=== PATIENT | female | born 1965 | race Caucasian/White ===

== ENCOUNTER → 2023-04-23 | Outpatient (CLI) | payer OTHER ==
--- NOTE | 2023-04-23 14:46 | USB ---
Reason for Exam: Follow-up at short interval from prior study. Risk Values: Emilie 5 year model risk: 0.9%. NCI Lifetime model risk: 5.1%. Technique: Method: Targeted. Findings: The medial section of the breast of the left breast, the axilla of the left breast and the retroareolar of the left breast were scanned. Targeted ultrasound left breast subareolar and periareolar region as well as the 10 and 11:00 position. There is no persisting abnormality in the subareolar region as questioned on outside ultrasounds. Microclip relating to patient's stereotactic biopsy is identified at the 11:00 position. No abnormality at the 10:00 position, possibly disrupted at the time of patient's stereotactic biopsy. No persisting lesion is seen. No other solid or cystic lesion or axillary lymphadenopathy. Overall Assessment: Known biopsy proven malignancy, BI-RAD 6 Management: Surgical Consultation of the left breast. Continue with the planned surgical and oncologic management of the patient's biopsy proven left breast DCIS. Results were given to the patient verbally at the time of exam. Electronically signed and approved by: Aidan Velarde M.D. Radiologist
== END | disposition home or self-care (01) ==
LOC: RADUSWWP 13:24
PROVIDERS: ATTEND Surgery
DX: C50.912 Malignant neoplasm of unspecified site of left female breast (principal)

== ENCOUNTER → 2023-04-23 | Outpatient (CLI) | payer OTHER ==
[2023-04-23 12:41] VITALS: BP 114/76; PULSE 73; RESP 17; TEMP 98.7
--- NOTE | 2023-04-23 13:02 | P.GSHP ---
History of Present Illness H&P Date: 04/23/23 Chief Complaint: DCIS left breast Dulce is a 58 year old female seen in consultation for Dr. 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 She had a bilateral mammogram on 03-15-23 which led to a diagnostic left breast ultrasound and mammogram on 03-25-23. She was noted to have microcalcifications of concern in the UOQ and ster biopsy was recommnded, and additionally she had : onultrasound: 1. oval mass subaerolar area left breast biopsy considered 2. oval mass 10:00 biopsy considered The ultrasound was repeated on 04-06-23 and felt to be probably benign. The above was reviewed with Dr. Friend and he recommended again repeating the ult rasound of the subaerolar and 10:00 regions of the breast. A stero biopsy was done of the calcifications on 04-05-23 which showed DCIS. The area spans 5 by 2 cm. The findings were on a routine screening mammogram. She was not complaining of any new lumps masses or nodules of concern in either breast. She is not complaining of any nipple discharge or skin changes. She had not had any recent trauma or infection in the breast. She has not had any surgery on her breast. Her last mammogram prior to htis was 2016. Caffeine: 3 cups/day nicotine: none BCP: used for about 3 years in remote past chocolate: occasional Family History: mother: pancreatic cancer maternal aunt: breast cancer maternal uncle: lung cancer smoker 3 paternal uncles: cnacer ? type Hormonal History: menarche: 12 , breast fed: no, age at first : 22 menopause: hysterectomy in 2000; one ovary left; done for fibroids Surgical History: hysterectomy/ one ovary removed back surgery laminectomy/discectomy/DJD tonsil Medical History: back pain PTSD OCD panic attacks Hypochondriac Social History: nicotine: none alcohol: none drugs: none - Constitutional Constitutional: Denies chills, Denies fever - EENT Eyes: denies blurred vision, denies pain Ears: deny: decreased hearing, tinnitus Ears, nose, mouth and throat: Denies headache, Denies sore throat - Breasts Breasts: bilateral: as per HPI - Cardiovascular Cardiovascular: Denies chest pain, Denies shortness of breath - Respiratory Respiratory: Denies cough, Denies 7 - Gastrointestinal Gastrointestinal: Denies abdominal pain, Denies diarrhea, Denies nausea, Denies vomiting - Genitourinary (Female) Genitourinary: Denies dysuria, Denies hematuria - Menstruation Menstruation: Reports post hysterectomy - Musculoskeletal Musculoskeletal: Reports as per HPI - Integumentary Integumentary: Denies pruritus, Denies rash - Neurological Neurological: Denies numbness, Denies weakness - Psychiatric Psychiatric: Reports as per HPI, Reports anxiety, Reports depression - Endocrine Endocrine: Reports fatigue, Denies weight change - Hematologic/Lymphatic Comment: none - Allergic/Immunologic Allergic/Immunologic: Reports seasonal allergies Medications and Allergies Home Medications Medication Instructions Recorded Confirmed Type ALPRAZolam [Xanax] 0.5 mg PO BID 04/23/23 04/23/23 History Albuterol Inhaler [Ventolin Hfa 1 puff INHALATION DAILY 04/23/23 04/23/23 History Inhaler] Atorvastatin [Lipitor] 40 mg PO DAILY 04/23/23 04/23/23 History Cyclobenzaprine [Flexeril] 5 mg PO DAILY 04/23/23 04/23/23 History Fluticasone Propion/Salmeterol 1 puff INHALATION DAILY 04/23/23 04/23/23 History [Advair Hfa 115-21 Mcg Inhaler] Melatonin 1 mg PO HS 04/23/23 04/23/23 History Montelukast [Singulair] 10 mg PO DAILY 04/23/23 04/23/23 History Multivitamin [Multivitamins Adult 1 tab PO DAILY 04/23/23 04/23/23 History Gummies] atenoloL [Tenormin] 50 mg PO DAILY 04/23/23 04/23/23 History Allergies Allergy/AdvReac Type Severity Reaction Status Date / Time morphine Allergy Nausea & Unverified 04/23/23 12:27 Vomiting Surgical - Exam - General moderate distress - Eyes normal ocular movement - Neck trachea midline - Respiratory normal respiratory effort, clear to auscultation - Cardiovascular Rhythm: regular Heart Sounds: normal: S1, S2 - Abdomen Abdomen: soft, non tender, no guarding, no rigid, no rebound - Integumentary normal turgor - Neurologic no disoriented, no combative - Musculoskeletal normal gait - Psychiatric oriented to time, oriented to person, oriented to place, speech is normal, memory intact Breast Exam: BRA: 38D Inspection: bilateral grade 3 ptosis, well-healed incision from core biopsy Palpation: Right breast: Multi positional exam no dominant masses or nodules of concern, slightly larger than left breast Right axilla: No adenopathy of concern Left breast: Multi positional exam no dominant masses or nodules of concern, well-healed incision from core biopsy Left axilla: No adenopathy of concern Results Mammogram and ultrasound reviewed with radiologist; recommend repeat ultrasound of the left breast for the subareolar and 10:00 area Assessment and Plan Assessment: Impression: DCIS left breast upper outer quadrant area 5 x 2 cm Abnormal left breast ultrasound to repeat today Genetic testing secondary to family history Plan: Presentation of case at tumor board Genetic testing CC: Dr. Bañuelos
== END ==
LOC: WWCWWP 11:51 → MERGE 12:00
PROVIDERS: ATTEND Surgery
DX: D05.12 Intraductal carcinoma in situ of left breast (principal); F42.9 Obsessive-compulsive disorder, unspecified; F43.10 Post-traumatic stress disorder, unspecified; Z80.3 Family history of malignant neoplasm of breast; Z88.5 Allergy status to narcotic agent

== ENCOUNTER 2023-05-14 13:18 | Observation (INO) | payer OTHER ==
[2023-05-14] MEDS: SODIUM CHLORIDE 0.9% 1,000 ML IV STA ×2 (14:27)
[2023-05-14 14:30] LABS: Basophils # (A) 0.1 k/uL (0-0.2); Basophils % (A) 1 %; Eosinophils # (A) 0.1 k/uL (0-0.7); Eosinophils % (A) 1 %; HCT 45.1 % (34.0-46.0); HGB 15.3 gm/dL (11.4-16.0); Lymphocytes # (A) 3.9 k/uL (1.0-4.8); Lymphocytes % (A) 28 %; MCHC 33.8 g/dL (31.0-37.0); MCV 91.6 fL (80.0-100.0); Mean Platelet Volume 7.2; Monocytes # (A) 0.9 k/uL (0-1.0); Monocytes % (A) 6 %; Neutrophils % (A) 63 %; Platelet Count 489 k/uL (150-450); RBC 4.93 m/uL (3.80-5.40); RDW 12.1 % (11.5-15.5); WBC 14.3 k/uL (3.8-10.6)
[2023-05-14] MEDS: KETOROLAC 15 MG/ML 1 ML VIAL IVP STA (14:30)
--- NOTE | 2023-05-14 14:30 | ED ---
Recheck HPI - General Chief Complaint: Neuro Symptoms/Deficit Stated Complaint: Weakness Time Seen by Provider: 05/14/23 13:28 Source: patient, RN notes reviewed, old records reviewed Mode of arrival: EMS Limitations: no limitations - History of Present Illness Initial Comments: This is a 58-year-old female to the ER for evaluation today. Patient presents today for evaluation of weakness bilateral lower extremity weakness numbness and tingling of both legs. Patient was concerned that she may have worsening urinary tract infection as she just stopped antibiotics. Patient is having some back pain history of back pain chronic back pain, patient also is denying any trauma or fevers. No IV drug abuse. Patient has no loss of bowel or bladder. Daughter at bedside states patient is having difficulty walking due to weakness MD Complaint: other (Lower extremity weakness worsening urinary tract infection) -: week(s) Returns Today for: needs IV antibiotics, persistent/worsening pain related to initial visit Symptoms Since Prior Visit: worsening pain (Increasing weakness) Associated Symptoms: malaise - Related Data Home Medications Medication Instructions Recorded Confirmed Albuterol Inhaler [Ventolin Hfa 2 puff INHALATION RT-Q6H PRN 04/23/23 05/14/23 Inhaler] Atorvastatin [Lipitor] 20 mg PO HS 04/23/23 05/14/23 Montelukast [Singulair] 10 mg PO HS 04/23/23 05/14/23 Atenolol/Chlorthalidone 1 tab PO HS 05/14/23 05/14/23 [Atenolol/Chlorthalidone 50-25] Cephalexin [Keflex] 500 mg PO QID 05/14/23 05/14/23 Cyclobenzaprine [Flexeril] 10 mg PO HS 05/14/23 05/14/23 Loratadine [Claritin] 10 mg PO DAILY 05/14/23 05/14/23 Potassium Chloride ER [K-Dur 10] 10 meq PO DAILY 05/14/23 05/14/23 Allergies Allergy/AdvReac Type Severity Reaction Status Date / Time morphine Allergy Nausea & Verified 05/14/23 14:34 Vomiting Review of Systems ROS Statement: Those systems with pertinent positive or pertinent negative responses have been documented in the HPI. ROS Other: All systems not noted in ROS Statement are negative. Past Medical History Past Medical History: Asthma, Cancer, Hypertension Additional Past Medical History / Comment(s): breast ca, djd hernitaion of lumbar spine History of Any Multi-Drug Resistant Organisms: None Reported Past Surgical History: Back Surgery, Hysterectomy, Tonsillectomy, Tubal Ligation Past Anesthesia/Blood Transfusion Reactions: No Reported Reaction Past Psychological History: Anxiety, Panic Disorder, PTSD Smoking Status: Never smoker Past Alcohol Use History: None Reported Past Drug Use History: None Reported General Exam - General Exam Comments Initial Comments: Patient was NIH 0 No saddle anesthesia Limitations: no limitations General appearance: alert, in no apparent distress Head exam: Present: atraumatic, normocephalic, normal inspection Eye exam: Present: normal appearance, PERRL, EOMI. Absent: scleral icterus, conjunctival injection, periorbital swelling ENT exam: Present: normal exam, mucous membranes moist Neck exam: Present: normal inspection. Absent: tenderness, meningismus, lymphadenopathy Respiratory exam: Present: normal lung sounds bilaterally. Absent: respiratory distress, wheezes, rales, rhonchi, stridor Cardiovascular Exam: Present: regular rate, normal rhythm, normal heart sounds. Absent: systolic murmur, diastolic murmur, rubs, gallop, clicks GI/Abdominal exam: Present: soft, normal bowel sounds. Absent: distended, tenderness, guarding, rebound, rigid Extremities exam: Present: normal inspection, full ROM, normal capillary refill. Absent: tenderness, pedal edema, joint swelling, calf tenderness Back exam: Present: normal inspection Neurological exam: Present: alert, oriented X3, CN II-XII intact Psychiatric exam: Present: normal affect, normal mood Skin exam: Present: warm, dry, intact, normal color. Absent: rash Course Vital Signs 05/14/23 05/14/23 13:22 17:51 Temperature 98.8 F Pulse Rate 125 H 103 H Respiratory 20 16 Rate Blood Pressure 160/104 141/82 O2 Sat by Pulse 95 97 Oximetry - Reevaluation(s) Reevaluation #1: 05/14/23 21:28 Medical records reviewed Reevaluation #2: 05/14/23 21:28 Patient symptoms unchanged 05/14/23 21:28 Patient considered for discharge due to persistent weakness Reevaluation #3: 05/14/23 21:28 Patient informed of results and questions answered Reevaluation #4: Was pt. sent in by a medical professional or institution (Dr., PA, FEATURES EDITOR, urgent care, hospital, or fci...) When possible be specific @ -no Did you speak to anyone other than the patient for history (EMS, parent, family, police, friend...)? What history was obtained from this source @ -no Did you review nursing and triage notes (agree or disagree)? Why? @ -agree Are old charts reviewed (outside hosp., previous admission, EMS record, old EKG, old radiological studies, urgent care reports/EKG's, fci records)? Report findings @ -yes Differential Diagnosis (chest pain, altered mental status, abdominal pain women, abdominal pain men, vaginal bleeding, weakness, fever, dyspnea, syncope, hea dache, dizziness, GI bleed, back pain, seizure, CVA, palpatations, mental health, musculoskeletal)? @ -prior EKG interpreted by me (3pts min.). @ -yes X-rays interpreted by me (1pt min.). @ -yes negative for acute disease CT interpreted by me (1pt min.). @ -no U/S interpreted by me (1pt. min.). @ -no What testing was considered but not performed or refused? (CT, X-rays, U/S, labs)? Why? @ -none What meds were considered but not given or refused? Why? @ -none Did you discuss the management of the patient with other professionals (professionals i.e. HUONG Cardenas, FEATURES EDITOR, lab, RT, psych nurse, manager social responsibility, sugar cane planting equipment operator, teacher, account officer, case monitor)? Give summary @ -no Was smoking cessation discussed for >3mins.? @ -no Was critical care preformed (if so, how long)? @ -no Were there social determinants of health that impacted care today? How? (Homelessness, low income, unemployed, alcoholism, drug addiction, transportation, low edu. Level, literacy, decrease access to med. care, intermediate, rehab)? @ -none Was there de-escalation of care discussed even if they declined (Discuss DNR or withdrawal of care, Hospice)? DNR status @ -no What co-morbidities impacted this encounter? (DM, HTN, Smoking, COPD, CAD, Cancer, CVA, ARF, Chemo, Hep., AIDS, mental health diagnosis, sleep apnea, mo rbid obesity)? @ -none Was patient admitted / discharged? Hospital course, mention meds given and r oute, prescriptions, significant lab abnormalities, going to OR and other pertinent info. @ - Undiagnosed new problem with uncertain prognosis? @ -no Drug Therapy requiring intensive monitoring for toxicity (Heparin, Nitro, Insulin, Cardizem)? @ -no Were any procedures done? @ -no Diagnosis/symptom? @ - Acute, or Chronic, or Acute on Chronic? @ -Acute Uncomplicated (without systemic symptoms) or Complicated (systemic symptoms)? @ -Complicated Side effects of treatment? @ -no Exacerbation, Progression, or Severe Exacerbation? @ -exacerbation Poses a threat to life or bodily function? How? (Chest pain, USA, RI, pneumonia, PE, COPD, DKA, ARF, appy, cholecystitis, CVA, Diverticulitis, Homicidal, Suicidal, threat to staff... and all critical care pts) @ -yes Reevaluation #5: Differential Weakness: Hypoglycemia, shock, sepsis, hyponatremia, anemia, infection, RI, ETOH, adverse medicine reaction, overdose, stroke, this is not meant to be an all-inclusive list. - Consultations Consultation #1: Spoke with [facility] to admit this patient Medical Decision Making - Medical Decision Making 58 female to ER for persistent weakness thought she may have worsening urinary tract infection but urinary tract infection is now clear. Patient g will be admitted for PT OT evaluation MRI of the back secondary to weakness although likelihood of any neurological complaint does seem low. Patient will be admitted for therapy pain control and hydration - Lab Data Result diagrams: 05/14/23 13:58 05/14/23 13:58 Lab Results 05/14/23 05/14/23 05/14/23 Range/Units 13:58 13:58 13:58 WBC 14.3 H (3.8-10.6) k/uL RBC 4.93 (3.80-5.40) m/uL Hgb 15.3 (11.4-16.0) gm/dL Hct 45.1 (34.0-46.0) % MCV 91.6 (80.0-100.0) fL MCH 31.0 (25.0-35.0) pg MCHC 33.8 (31.0-37.0) g/dL RDW 12.1 (11.5-15.5) % Plt Count 489 H (150-450) k/uL MPV 7.2 Neutrophils % 63 % Lymphocytes % 28 % Monocytes % 6 % Eosinophils % 1 % Basophils % 1 % Neutrophils # 9.0 H (1.3-7.7) k/uL Lymphocytes # 3.9 (1.0-4.8) k/uL Monocytes # 0.9 (0-1.0) k/uL Eosinophils # 0.1 (0-0.7) k/uL Basophils # 0.1 (0-0.2) k/uL PT 10.7 (10.0-12.5) sec INR 1.0 (<1.2) APTT 23.6 (22.0-30.0) sec Sodium (137-145) mmol/L Potassium (3.5-5.1) mmol/L Chloride (98-107) mmol/L Carbon Dioxide (22-30) mmol/L Anion Gap mmol/L BUN (7-17) mg/dL Creatinine (0.52-1.04) mg/dL Est GFR (CKD-EPI)AfAm (>60 ml/min/1.73 sqM) Est GFR (CKD-EPI)NonAf (>60 ml/min/1.73 sqM) Glucose (74-99) mg/dL Lactic Ac Sepsis Rflx Plasma Lactic Acid Andrea (0.7-2.0) mmol/L Calcium (8.4-10.2) mg/dL Phosphorus (2.5-4.5) mg/dL Magnesium (1.6-2.3) mg/dL Total Bilirubin (0.2-1.3) mg/dL AST (14-36) U/L ALT (4-34) U/L Alkaline Phosphatase (38-126) U/L Troponin I (0.000-0.034) ng/mL NT-Pro-B Natriuret Pep pg/mL Total Protein (6.3-8.2) g/dL Albumin (3.5-5.0) g/dL Urine Color Colorless Urine Appearance Clear (Clear) Urine pH 6.5 (5.0-8.0) Ur Specific [place] 1.005 (1.001-1.035) Urine Protein Negative (Negative) Urine Glucose (UA) Negative (Negative) Urine Ketones Negative (Negative) Urine Blood Negative (Negative) Urine Nitrite Negative (Negative) Urine Bilirubin Negative (Negative) Urine Urobilinogen <2.0 (<2.0) mg/dL Ur Leukocyte Esterase Negative (Negative) 05/14/23 05/14/23 05/14/23 Range/Units 13:58 13:58 13:58 WBC (3.8-10.6) k/uL RBC (3.80-5.40) m/uL Hgb (11.4-16.0) gm/dL Hct (34.0-46.0) % MCV (80.0-100.0) fL MCH (25.0-35.0) pg MCHC (31.0-37.0) g/dL RDW (11.5-15.5) % Plt Count (150-450) k/uL MPV Neutrophils % % Lymphocytes % % Monocytes % % Eosinophils % % Basophils % % Neutrophils # (1.3-7.7) k/uL Lymphocytes # (1.0-4.8) k/uL Monocytes # (0-1.0) k/uL Eosinophils # (0-0.7) k/uL Basophils # (0-0.2) k/uL PT (10.0-12.5) sec INR (<1.2) APTT (22.0-30.0) sec Sodium 137 (137-145) mmol/L Potassium 3.3 L (3.5-5.1) mmol/L Chloride 100 (98-107) mmol/L Carbon Dioxide 27 (22-30) mmol/L Anion Gap 10 mmol/L BUN 15 (7-17) mg/dL Creatinine 0.69 (0.52-1.04) mg/dL Est GFR (CKD-EPI)AfAm >90 (>60 ml/min/1.73 sqM) Est GFR (CKD-EPI)NonAf >90 (>60 ml/min/1.73 sqM) Glucose 134 H (74-99) mg/dL Lactic Ac Sepsis Rflx Plasma Lactic Acid Andrea 2.4 H* (0.7-2.0) mmol/L Calcium 9.6 (8.4-10.2) mg/dL Phosphorus 3.5 (2.5-4.5) mg/dL Magnesium 1.7 (1.6-2.3) mg/dL Total Bilirubin 0.5 (0.2-1.3) mg/dL AST 32 (14-36) U/L ALT 27 (4-34) U/L Alkaline Phosphatase 100 (38-126) U/L Troponin I <0.012 (0.000-0.034) ng/mL NT-Pro-B Natriuret Pep 75 pg/mL Total Protein 7.5 (6.3-8.2) g/dL Albumin 4.4 (3.5-5.0) g/dL Urine Color Urine Appearance (Clear) Urine pH (5.0-8.0) Ur Specific [place] (1.001-1.035) Urine Protein (Negative) Urine Glucose (UA) (Negative) Urine Ketones (Negative) Urine Blood (Negative) Urine Nitrite (Negative) Urine Bilirubin (Negative) Urine Urobilinogen (<2.0) mg/dL Ur Leukocyte Esterase (Negative) 05/14/23 05/14/23 Range/Units 14:56 17:35 WBC (3.8-10.6) k/uL RBC (3.80-5.40) m/uL Hgb (11.4-16.0) gm/dL Hct (34.0-46.0) % MCV (80.0-100.0) fL MCH (25.0-35.0) pg MCHC (31.0-37.0) g/dL RDW (11.5-15.5) % Plt Count (150-450) k/uL MPV Neutrophils % % Lymphocytes % % Monocytes % % Eosinophils % % Basophils % % Neutrophils # (1.3-7.7) k/uL Lymphocytes # (1.0-4.8) k/uL Monocytes # (0-1.0) k/uL Eosinophils # (0-0.7) k/uL Basophils # (0-0.2) k/uL PT (10.0-12.5) sec INR (<1.2) APTT (22.0-30.0) sec Sodium (137-145) mmol/L Potassium (3.5-5.1) mmol/L Chloride (98-107) mmol/L Carbon Dioxide (22-30) mmol/L Anion Gap mmol/L BUN (7-17) mg/dL Creatinine (0.52-1.04) mg/dL Est GFR (CKD-EPI)AfAm (>60 ml/min/1.73 sqM) Est GFR (CKD-EPI)NonAf (>60 ml/min/1.73 sqM) Glucose (74-99) mg/dL Lactic Ac Sepsis Rflx Y Plasma Lactic Acid Andrea 1.4 (0.7-2.0) mmol/L Calcium (8.4-10.2) mg/dL Phosphorus (2.5-4.5) mg/dL Magnesium (1.6-2.3) mg/dL Total Bilirubin (0.2-1.3) mg/dL AST (14-36) U/L ALT (4-34) U/L Alkaline Phosphatase (38-126) U/L Troponin I (0.000-0.034) ng/mL NT-Pro-B Natriuret Pep pg/mL Total Protein (6.3-8.2) g/dL Albumin (3.5-5.0) g/dL Urine Color Urine Appearance (Clear) Urine pH (5.0-8.0) Ur Specific [place] (1.001-1.035) Urine Protein (Negative) Urine Glucose (UA) (Negative) Urine Ketones (Negative) Urine Blood (Negative) Urine Nitrite (Negative) Urine Bilirubin (Negative) Urine Urobilinogen (<2.0) mg/dL Ur Leukocyte Esterase (Negative) - Radiology Data Radiology results: report reviewed (CT abdomen pelvis ultrasound negative for acute disease), image reviewed Disposition Clinical Impression: Weakness, Dehydration, Hypokalemia Disposition: HOME SELF-CARE Condition: Good Is patient prescribed a controlled substance at d/c from ED?: No Time of Disposition: 21:00
[2023-05-14 14:31] LABS: Appearance,Urine Clear (Clear); Bilirubin,Urine Negative (Negative); Blood,Urine Negative (Negative); Color,Urine Colorless; Glucose,Urine (UA) Negative (Negative); Ketones,Urine Negative (Negative); Leukocyte Esterase,Urine Negative (Negative); Nitrite,Urine Negative (Negative); PH, Urine 6.5 (5.0-8.0); Protein,Urine Negative (Negative); Specific Gravity,Urine 1.005 (1.001-1.035); Urobilinogen,Urine <2.0 mg/dL (<2.0)
[2023-05-14 14:40] LABS: Partial Thromboplastin Time 23.6 sec (22.0-30.0); Prothrombin Time 10.7 sec (10.0-12.5)
[2023-05-14 14:55] LABS: ALT 27 U/L (4-34); AST 32 U/L (14-36); African American GFR (CKD) >90 (>60 ml/min/1.73 sqM); Albumin 4.4 g/dL (3.5-5.0); Alkaline Phosphatase 100 U/L (38-126); Anion Gap 10 mmol/L; Blood Urea Nitrogen 15 mg/dL (7-17); Calcium 9.6 mg/dL (8.4-10.2); Carbon Dioxide 27 mmol/L (22-30); Chloride 100 mmol/L (98-107); Glucose 134 mg/dL (74-99); Magnesium 1.7 mg/dL (1.6-2.3); Non-African American GFR(CKD) >90 (>60 ml/min/1.73 sqM); Phosphorus 3.5 mg/dL (2.5-4.5); Potassium 3.3 mmol/L (3.5-5.1); Sodium 137 mmol/L (137-145); Total Bilirubin 0.5 mg/dL (0.2-1.3); Total Protein 7.5 g/dL (6.3-8.2)
--- NOTE | 2023-05-14 15:00 | CT ---
EXAMINATION: CT ABDOMEN AND PELVIS WITHOUT IV CONTRAST DATE OF EXAMINATION: 05/14/2023. COMPARISON: None available. INDICATION: Anterior abdominal pain with elevated white blood cell count. PROCEDURE: Axial CT of the abdomen and pelvis was performed with sagittal and coronal reformatted i mages without contrast enhancement. The exam is limited because some types of pathology may not be ad equately demonstrated due to lack of contrast enhancement. CT dose lowering techniques were used, to include: automated exposure control, adjustment for patient size, and/or use of iterative reconstruct ion. FINDINGS: LOWER CHEST : The visualized lung bases are clear. There are no pleural or pericardial effusions. ABDOMEN: Liver and Biliary system: Normal. Adrenal glands: Normal. Kidneys and ureters: There are no renal stones or hydronephrosis. No ureteral stones are present.. Spleen: Normal. Pancreas: Normal. Gallbladder: Gallstone is seen within the gallbladder. Lymph nodes, Peritoneum and mesentery: There is no mesenteric or retroperitoneal lymphadenopathy. Gastrointestinal tract: There are no dilated loops of bowel or free intraperitoneal air. . The appe ndix is normal. There is some scattered colonic diverticulosis without evidence of diverticulitis. Aorta/IVC: There is mild vascular calcification within the abdominal aorta without evidence of aneu rysmal dilation.. IVC normal. Abdominal wall: Normal. PELVIS: Fluid: There is no free fluid in the pelvis. Lymph Nodes: There is no pelvic or inguinal lymphadenopathy.. Urinary bladder: Normal. BONES: There are no osseous destructive lesions.. ADDITIONAL SIGNIFICANT FINDINGS: Septated cyst versus adjacent cysts within the left ovary measurin g approximately 4.8 cm in diameter. There appears to been a prior hysterectomy.. IMPRESSION: 1. No renal stones or hydronephrosis.. 2. No bowel obstruction or appendicitis. 3. Diverticulosis without evidence of diverticulitis. 4. Complex appearing cystic structure within the left ovary versus adjacent cysts. This would be bett er evaluated by ultrasound.
[2023-05-14 15:03] LABS: NT-Pro-B-Type Natriuretic Pept 75 pg/mL
[2023-05-14] MEDS: LEVOFLOXACIN 750MG-D5W PMX 750 MG in DEXTROSE/WATER 1 150ML.BAG IVPB STA (15:18)
--- NOTE | 2023-05-14 16:17 | US ---
EXAMINATION TYPE: US transvaginal DATE OF EXAM: 05/14/2023 COMPARISON: CT abdomen and pelvis on 05/14/2023. CLINICAL INDICATION: Female, 58 years old with history of cyst; Partial hysterectomy patient states o nly has one ovary. UTi TECHNIQUE: Transvaginal (TV EXAM MEASUREMENTS: Uterus: Surgically absent cm Endometrial Stripe: Surgically absent cm 1. Uterus: Surgically absent 2. Endometrium: Surgically absent 3. Right Ovary: Ovary vs Complex mass 4.0 x 2.4 x 3.8 cm 4. Left Ovary: 5.7 x 4.0 x 4.4 cm complex cystic areas seen largest 4.0 x 3.4 x 3.6 cm. Spectral, color and waveform doppler imaging shows good arterial and venous flow within the ovaries ; there is no evidence for ovarian torsion. 5. Bilateral Adnexa: complex masses seen bilaterally 6. Posterior cul-de-sac: wnl IMPRESSION: 1. Complex appearing cystic structure seen within the ovaries bilaterally could potentially represent malignancy. Malignancy would be in the differential diagnosis. GASOLINE CATALYST OPERATOR consult recommended. 2. Surgically absent uterus.
[2023-05-14] MEDS: POTASSIUM BICARBONATE/CIT AC 20 MEQ TABLET.EFF PO ONE (17:15)
[2023-05-14] MEDS ORDERED: HYDROmorphone 1 MG/ML 1 ML SYRINGE IVP PRN (19:12)
[2023-05-14] MEDS ORDERED: NALOXONE 0.4 MG/ML 1 ML VIAL IV PRN (19:12)
[2023-05-14] MEDS ORDERED: ONDANSETRON 4 MG/2 ML VIAL IVP PRN (19:12)
[2023-05-14] MEDS: bisacodyL 5 MG TABLET.DR PO STA (19:13)
[2023-05-14] MEDS: SODIUM CHLORIDE 0.9% 1,000 ML IV SCH (19:48)
[2023-05-14] MEDS ORDERED: ALBUTEROL NEBULIZED 2.5 MG/3 ML INHALATION PRN (23:20)
[2023-05-15 08:05] LABS: ALT 24 U/L (4-34); AST 36 U/L (14-36); African American GFR (CKD) >90 (>60 ml/min/1.73 sqM); Albumin 3.5 g/dL (3.5-5.0); Albumin/Globulin Ratio 1.4; Alkaline Phosphatase 82 U/L (38-126); Anion Gap 3 mmol/L; Blood Urea Nitrogen 17 mg/dL (7-17); Carbon Dioxide 31 mmol/L (22-30); Chloride 104 mmol/L (98-107); Globulin 2.5 g/dL; Glucose 108 mg/dL (74-99); Magnesium 1.8 mg/dL (1.6-2.3); Non-African American GFR(CKD) >90 (>60 ml/min/1.73 sqM); Phosphorus 4.1 mg/dL (2.5-4.5); Potassium 4.1 mmol/L (3.5-5.1); Sodium 138 mmol/L (137-145); Total Bilirubin 0.8 mg/dL (0.2-1.3)
[2023-05-15] MEDS: atenoloL 50 MG TAB PO SCH (09:00)
[2023-05-15] MEDS: POTASSIUM CHLORIDE ER 10 MEQ TAB.ER.PRT PO SCH (09:00)
[2023-05-15] MEDS: LORATADINE 10 MG TAB PO SCH (09:01)
[2023-05-15 10:33] LABS: Basophils # (A) 0.07 X 10*3/uL (0.00-0.10); Basophils % (A) 0.5 %; Eosinophils # (A) 0.63 X 10*3/uL (0.04-0.35); Eosinophils % (A) 4.8 %; HCT 40.7 % (37.2-46.3); HGB 13.7 g/dL (12.0-15.0); Lymphocytes # (A) 4.67 X 10*3/uL (0.90-5.00); MCH 30.8 pg (27.0-32.0); MCHC 33.7 g/dL (32.0-37.0); MCV 91.5 FL (80.0-97.0); Mean Platelet Volume 9.1 FL (9.5-12.2); Monocytes # (A) 1.23 X 10*3/uL (0.20-1.00); Monocytes % (A) 9.5 %; NRBC Per 100 WBC 0 X 10*3/uL (0.00-0.01); Neutrophils # (A) 6.35 X 10*3/uL (1.80-7.70); Neutrophils % (A) 48.9 %; Platelet Count 399 X 10*3/uL (140-440); RBC 4.45 X 10*6/uL (4.10-5.20); RDW 12.4 % (11.5-14.5); WBC 12.99 X 10*3/uL (4.50-10.00)
--- NOTE | 2023-05-15 13:08 | MR ---
EXAMINATION TYPE: MR lumbar spine wo/w con DATE OF EXAM: 05/15/2023 12:28 PM CLINICAL INDICATION:Female, 58 years old with history of back painr, Low back pain, breast cancer. COMPARISON: 05/14/2023 CT and ultrasound. TECHNIQUE: Multi planar, multi sequence imaging was performed utilizing: T1-weighted, T2-weighted, a nd turbo inversion recovery imaging of the lumbar spine. IV Contrast: 7.5 cc Gadobutrol. (None if empty) FINDINGS: Alignment: The lumbar vertebral bodies have preserved heights and alignment. Cord: The conus medullaris and the distal spinal cord appear unremarkable with regards to their signa l intensity and morphology. No abnormal postcontrast enhancement. Bones/Discs: Mild degeneration changes throughout the spine with osteophyte formation and facet joint arthropathy. Intervertebral disc signal is maintained. No abnormal postcontrast enhancement. T12-L1: No evidence of significant spinal canal stenosis or neural foraminal stenosis. L1-L2: No evidence of significant spinal canal stenosis or neural foraminal stenosis. L2-L3: Disc bulge and facet joint arthropathy result in mild spinal canal and mild to moderate bilate ral neural foraminal stenosis. L3-L4: Disc bulge and facet joint arthropathy result in mild spinal canal and moderate bilateral neur al foraminal stenosis. L4-L5: Disc bulge and facet joint arthropathy result in mild spinal canal and moderate to severe bila teral neural foraminal stenosis. L5-S1: The disc is rounded posterior morphology without significant spinal canal stenosis. Facet join t arthropathy with mild bilateral neural foraminal stenosis. No significant spinal canal or neural foraminal stenosis in the remainder of the visualized levels. Other findings: Complex cystic structure in the pelvis measuring at least 63 x 36 mm. On the left an d another partially visualized on the right 24 x 21. IMPRESSION: 1. No definitive evidence of disc herniation or significant spinal canal stenosis. No abnormal postc ontrast enhancement. 2. Moderate disc degeneration with associated osteoarthritic changes worse at L3-L4 with moderate bi lateral and L4-L5 moderate to severe bilateral neural foraminal stenosis. 3. Partially visualized bilateral ovarian cysts further evaluation, steam pipe fitter oncologist workup s hould be performed.
--- NOTE | 2023-05-15 14:46 | P.HPIM ---
History of Present Illness Patient came in with complaints of lower extremity weakness and tingling numbness patient does have history of chronic low back pain. Patient's symptoms has been going on for about a week to 10 days progressively getting worse becau se of which patient came to ER. Patient was recently treated for urinary tract infection. 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 Patient will undergo bilateral mastectomy in month of May. Patient was also found to have a complex left ovarian cyst. Patient had leukocytosis MRI of the lumbar spine showed moderate disc degeneration with moderate bilateral L4-L5 and moderate to severe bilateral neuroforaminal foraminal stenosis. REVIEW OF SYSTEMS: CONSTITUTIONAL: No fever, no malaise, no fatigue. HEENT: No recent visual problems or hearing problems. Denied any sore throat. CARDIOVASCULAR: No chest pain, orthopnea, PND, no palpitations, no syncope. PULMONARY: No shortness of breath, no cough, no hemoptysis. GASTROINTESTINAL: No diarrhea, no nausea, no vomiting, no abdominal pain. NEUROLOGICAL: No headaches. HEMATOLOGICAL: Denies any bleeding or petechiae. GENITOURINARY: Denies any burning micturition, frequency, or urgency. MUSCULOSKELETAL/RHEUMATOLOGICAL: Denies any joint pain, swelling, or any muscle pain. ENDOCRINE: Denies any polyuria or polydipsia. The rest of the 14-point review of systems is negative. PHYSICAL EXAMINATION: GENERAL: The patient is alert and oriented x3, not in any acute distress. Well developed, well nourished. HEENT: Pupils are round and equally reacting to light. EOMI. No scleral icterus. No conjunctival pallor. Normocephalic, atraumatic. No pharyngeal erythema. No thyromegaly. CARDIOVASCULAR: S1 and S2 present. No murmurs, rubs, or gallops. PULMONARY: Chest is clear to auscultation, no wheezing or crackles. ABDOMEN: Soft, nontender, nondistended, normoactive bowel sounds. No palpable organomegaly. MUSCULOSKELETAL: No joint swelling or deformity. EXTREMITIES: No cyanosis, clubbing, or pedal edema. NEUROLOGICAL: 4/5 in the lower extremity SKIN: No rashes. Assessment and plan 1 bilateral lower extremity weakness: Probably secondary to lumbar radiculopathy patient has L4-L5 neuroforaminal stenosis patient will be started on Decadron consultation to final surgeon -Complex ovarian cyst: Consulted CLINIC ADMINISTRATOR -Tachycardia secondary to pain which improved leukocytosis reactive without any evidence of infection at this time Ductal carcinoma in situ, breast cancer: Follow-up as an outpatient for mastectomy -Seizure disorder -Chronic low back pain -Hypertension DVT prophylaxis: Lovenox Past Medical History Past Medical History: Asthma, Cancer, Hypertension Additional Past Medical History / Comment(s): breast ca, djd hernitaion of lumbar spine History of Any Multi-Drug Resistant Organisms: None Reported Past Surgical History: Back Surgery, Hysterectomy, Tonsillectomy, Tubal Ligation Past Anesthesia/Blood Transfusion Reactions: No Reported Reaction Past Psychological History: Anxiety, Panic Disorder, PTSD Smoking Status: Never smoker Past Alcohol Use History: None Reported Past Drug Use History: None Reported Medications and Allergies Home Medications Medication Instructions Recorded Confirmed Type Albuterol Inhaler [Ventolin Hfa 2 puff INHALATION RT-Q6H PRN 04/23/23 05/14/23 History Inhaler] Atorvastatin [Lipitor] 20 mg PO HS 04/23/23 05/14/23 History Montelukast [Singulair] 10 mg PO HS 04/23/23 05/14/23 History Atenolol/Chlorthalidone 1 tab PO HS 05/14/23 05/14/23 History [Atenolol/Chlorthalidone 50-25] Cephalexin [Keflex] 500 mg PO QID 05/14/23 05/14/23 History Cyclobenzaprine [Flexeril] 10 mg PO HS 05/14/23 05/14/23 History Loratadine [Claritin] 10 mg PO DAILY 05/14/23 05/14/23 History Potassium Chloride ER [K-Dur 10] 10 meq PO DAILY 05/14/23 05/14/23 History Allergies Allergy/AdvReac Type Severity Reaction Status Date / Time morphine Allergy Nausea & Verified 05/14/23 14:34 Vomiting Physical Exam Vitals: Vital Signs Temp Pulse Pulse Resp BP BP Pulse Ox 05/15/23 08:00 88 14 05/15/23 07:00 97.7 F 88 14 109/74 97 05/15/23 02:09 87 16 05/15/23 02:00 98.3 F 90 16 114/68 100 05/14/23 22:26 97.6 F 87 16 146/90 99 05/14/23 17:51 103 H 16 141/82 97 Intake and Output 05/14/23 05/15/23 05/15/23 22:59 06:59 14:59 Other: Voiding Method Bedside Commode Bedside Commode # Voids 0 0 Weight 77.111 kg Results CBC & Chem 7: 05/15/23 07:08 05/15/23 07:08 Labs: Abnormal Lab Results - Last 24 Hours (Table) 05/14/23 05/14/23 05/15/23 Range/Units 13:58 13:58 07:08 WBC 12.99 H (4.50-10.00) X 10*3/uL MPV 9.1 L (9.5-12.2) FL Monocytes # 1.23 H (0.20-1.00) X 10*3/uL Eosinophils # 0.63 H (0.04-0.35) X 10*3/uL Potassium 3.3 L (3.5-5.1) mmol/L Carbon Dioxide (22-30) mmol/L Glucose 134 H (74-99) mg/dL Plasma Lactic Acid Andrea 2.4 H* (0.7-2.0) mmol/L Total Protein (6.3-8.2) g/dL 05/15/23 Range/Units 07:08 WBC (4.50-10.00) X 10*3/uL MPV (9.5-12.2) FL Monocytes # (0.20-1.00) X 10*3/uL Eosinophils # (0.04-0.35) X 10*3/uL Potassium (3.5-5.1) mmol/L Carbon Dioxide 31 H (22-30) mmol/L Glucose 108 H (74-99) mg/dL Plasma Lactic Acid Andrea (0.7-2.0) mmol/L Total Protein 6.0 L (6.3-8.2) g/dL Thrombosis Risk Factor Assmnt - Choose All That Apply Any of the Below Risk Factors Present?: Yes Each Factor Represents 1 point: Age 41-60 years, Obesity (BMI >25), Varicose veins Other congenital or acquired thrombophilia - If yes, enter type in comment: No Thrombosis Risk Factor Assessment Total Risk Factor Score: 3 Thrombosis Risk Factor Assessment Level: Moderate Risk
[2023-05-15] MEDS: SENNOSIDES 8.6 MG TAB PO PRN (16:28)
[2023-05-15] MEDS: HEPARIN SODIUM,PORCINE 5,000 UNIT/ML 1 ML VIAL SQ SCH (17:02)
[2023-05-15] MEDS: ALPRAZolam 0.5 MG TAB PO PRN (17:10)
--- NOTE | 2023-05-15 17:47 | P.OBCN ---
History of Present Illness Consult date: 05/15/23 Requesting physician: Wilder Perez Reason for consult: ovarian cyst (Bilateral complex ovarian cysts) Chief complaint: Bilateral complex ovarian cysts History of present illness: This is a 58-year-old female 3 para 3 who presented to the emergency room after she was noted to have weakness and difficulty walking. The patient was initially diagnosed with ductal carcinoma in situ of the left breast on 04/13/2023. She was seen by Dr. Harley and is scheduled for surgery on 06/22/2023. Patient admitted that she got depressed after the diagnosis and went to stay with her daughter. She states she was not eating very well or drinking much water. On 05/06/2023 she started slurring her words and losing her balance. She was seen in the emergency room at [facility] and they gave her IV fluids for dehydration and diagnosed her with a urinary tract infection. They gave her cephalexin 500 mg 4 times a day. 2 days later, she started having weakening in her legs that it progressed to the point that she was having trouble walking prior to admission here on May 14. Patient also states that she has been unable to have a bowel movement for about 5 days now, but thinks it may have to do with her antibiotic and poor diet recently. On admission workup, she was noted to have complex ovarian cystic masses on both ovaries on computed tomography scan. A pelvic ultrasound was also performed that showed complex masses on both ovaries with no torsion noted. Each side was measuring about 4 cm and appeared complex. Malignancy was not ruled out. Patient states she did have a abdominal hysterectomy with bladder suspension in 2000 at [facility] in 2000 due to large fibroids. She states it was also for urinary leakage. She denies any current leakage but does feel some pressure over her bladder area. Patient states she would be getting genetic te sting due to her breast cancer diagnosis but has not completed this yet. Obstetrical history: . History of 3 vaginal deliveries. Gynecologic history: No history of sexual transmitted diseases Social history: She is disabled. She is 3. No current partner. Review of Systems Constitutional: Reports weakness, Denies chills, Denies fever Gastrointestinal: Reports abdominal pain (Abdominal discomfort due to no bowel movement in 5 days), Reports bloating, Reports constipation Genitourinary: Denies pelvic pain Musculoskeletal: Reports low back pain, Reports myalgias Neurological: Reports balance difficulties, Reports motor disturbance, Reports weakness Psychiatric: Reports anxiety, Reports depression Past Medical History Past Medical History: Asthma, Cancer, Hypertension Additional Past Medical History / Comment(s): breast ca, djd hernitaion of lumbar spine History of Any Multi-Drug Resistant Organisms: None Reported Past Surgical History: Back Surgery, Hysterectomy, Tonsillectomy, Tubal Ligation Additional Past Surgical History / Comment(s): Bladder suspension with abdominal hysterectomy Past Anesthesia/Blood Transfusion Reactions: No Reported Reaction Past Psychological History: Anxiety, Panic Disorder, PTSD Additional Psychological History / Comment(s): OCD Smoking Status: Never smoker Past Alcohol Use History: None Reported Past Drug Use History: None Reported Medications and Allergies Home Medications Medication Instructions Recorded Confirmed Type Albuterol Inhaler [Ventolin Hfa 2 puff INHALATION RT-Q6H PRN 04/23/23 05/14/23 History Inhaler] Atorvastatin [Lipitor] 20 mg PO HS 04/23/23 05/14/23 History Montelukast [Singulair] 10 mg PO HS 04/23/23 05/14/23 History Atenolol/Chlorthalidone 1 tab PO HS 05/14/23 05/14/23 History [Atenolol/Chlorthalidone 50-25] Cephalexin [Keflex] 500 mg PO QID 05/14/23 05/14/23 History Cyclobenzaprine [Flexeril] 10 mg PO HS 05/14/23 05/14/23 History Loratadine [Claritin] 10 mg PO DAILY 05/14/23 05/14/23 History Potassium Chloride ER [K-Dur 10] 10 meq PO DAILY 05/14/23 05/14/23 History Allergies Allergy/AdvReac Type Severity Reaction Status Date / Time morphine Allergy Nausea & Verified 05/14/23 14:34 Vomiting Exam Osteopathic Statement: *. No significant issues noted on an osteopathic structural exam other than those noted in the History and Physical/Consult. Vital Signs Temp Pulse Pulse Resp BP BP Pulse Ox 05/15/23 15:00 98.0 F 100 16 99/69 99 05/15/23 14:00 100 16 05/15/23 08:00 88 14 05/15/23 07:00 97.7 F 88 14 109/74 97 05/15/23 02:09 87 16 05/15/23 02:00 98.3 F 90 16 114/68 100 05/14/23 22:26 97.6 F 87 16 146/90 99 05/14/23 17:51 103 H 16 141/82 97 Intake and Output 05/15/23 05/15/23 05/15/23 06:59 14:59 22:59 Output Total 5 Balance -5 Output: Urine 5 Other: Voiding Method Bedside Commode Bedside Commode # Voids 0 # Bowel Movements 1 Gen.: Pleasant well-developed well-nourished female lying in bed in no acute distress - OBG Physical Exam Abdomen: Mild distention noted Abdomen: bowel sounds normal, no diffuse tenderness, no mass (No palpable mass noted) Uterus: Pelvic exam is not completed, gynecologic exam bed is not available. Results Pelvic ultrasound shows right complex ovarian mass measuring 4 x 2.4 x 3.8 cm. Left ovarian mass measuring 5.7 x 4 x 4.47 m with a complex cyst measuring 4 x 3.4 x 3.6 cm. No torsion noted. Result Diagrams: 05/15/23 07:08 05/15/23 07:08 Abnormal Lab Results - Last 24 Hours (Table) 05/15/23 05/15/23 Range/Units 07:08 07:08 WBC 12.99 H (4.50-10.00) X 10*3/uL MPV 9.1 L (9.5-12.2) FL Monocytes # 1.23 H (0.20-1.00) X 10*3/uL Eosinophils # 0.63 H (0.04-0.35) X 10*3/uL Carbon Dioxide 31 H (22-30) mmol/L Glucose 108 H (74-99) mg/dL Total Protein 6.0 L (6.3-8.2) g/dL CT scan - abdomen: report reviewed CT scan - pelvis: report reviewed Assessment and Plan (1) Complex cyst of both ovaries Current Visit: Yes Status: Acute Code(s): N83.291 - OTHER OVARIAN CYST, RIGH T SIDE; N83.292 - OTHER OVARIAN CYST, LEFT SIDE SNOMED Code(s): 567807379 66948075 (2) Weakness Current Visit: Yes Status: Acute Code(s): R53.1 - WEAKNESS SNOMED Code(s): 87955327 Plan: I have ordered a CA-125 and results are pending. I have recommended that the patient be seen by MANAGER TALENT MANAGEMENT oncology after discharge for further workup and possible surgery due to the potential for malignancy. She may follow-up with me after discharge so that I can arrange referral to MANAGER TALENT MANAGEMENT oncology. Will follow.
[2023-05-15] MEDS: MONTELUKAST 10 MG TAB PO SCH (19:57)
[2023-05-15] MEDS: CYCLOBENZAPRINE 10 MG TAB PO SCH (19:57)
[2023-05-15] MEDS: FAMOTIDINE 20 MG TAB PO SCH (19:57)
[2023-05-15] MEDS: dexAMETHasone 4 MG TAB PO SCH (19:57)
[2023-05-15] MEDS: ATORVASTATIN 20 MG TAB PO SCH (19:57)
--- NOTE | 2023-05-16 11:41 | P.PN ---
Progress Note - Text Progress Note Date: 05/16/23 Patient is feeling much better today. She states the steroids have helped improve her mobility and she is able to walk to the bathroom without assistance. I informed her that her CA-125 was 18.9 which is in normal range. I still recommend that she follow-up with a TOOL PLANNER oncologist due to the bilateral complex ovarian cysts and her history of breast cancer. She will call my office after discharge to arrange for a referral to a TOOL PLANNER oncologist at [facility]. I will sign off at this point. Thank you.
--- NOTE | 2023-05-16 14:40 | P.PN ---
Subjective Progress Note Date: 05/16/23 Patient came in with complaints of lower extremity weakness and tingling numbness patient does have history of chronic low back pain. Patient's symptoms has been going on for about a week to 10 days progressively getting worse because of which patient came to ER. Patient was recently treated for urinary tract infection. 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 Patient will undergo bilateral mastectomy in month of May. Patient was also found to have a complex left ovarian cyst. Patient had leukocytosis MRI of the lumbar spine showed moderate disc degeneration with moderate bilateral L4-L5 and moderate to severe bilateral neuroforaminal foraminal stenosis. 05/16/2023 Patient evaluated today in the medical floor. She does report improvement in the tingling of her lower extremities and also her strength since being started on the dexamethasone. She however continues to report feeling shaky when she is getting up and transferring to the bedside commode. Her lumbar spine MRI does show moderate to severe bilateral neuroforaminal stenosis. She is requesting for evaluation by Dr. Mckeon who was not in until Wednesday. This can be done on an outpatient basis. Nevertheless patient needs to be evaluated by physical therapy prior to discharge as she is worried about going home and feels she may need subacute rehab. She has been cleared by gynecology for discharge to follow-up outpatient and will be set up with a COMMISSARY HELPER oncologist specialist for further evaluation of the ovarian mass. The CA125 antigen is within normal limits. Potassium is normalized and lactic acid has normalized. Review of Systems Constitutional: Denied any fatigue denied any fever. Cardio vascular: denied any chest pain, palpitations Gastrointestinal: denied any nausea, vomiting, diarrhea Pulmonary: Denied any shortness of breath cough Neurologic denied any new focal deficits All inpatient medications were reviewed and appropriate changes in these medications as dictated in the interval history and assessment and plan. PHYSICAL EXAMINATION: GENERAL: The patient is alert and oriented x3, not in any acute distress. Well developed, well nourished. HEENT: Pupils are round and equally reacting to light. EOMI. No scleral icterus. No conjunctival pallor. Normocephalic, atraumatic. No pharyngeal erythema. No thyromegaly. CARDIOVASCULAR: S1 and S2 present. No murmurs, rubs, or gallops. PULMONARY: Chest is clear to auscultation, no wheezing or crackles. ABDOMEN: Soft, nontender, nondistended, normoactive bowel sounds. No palpable organomegaly. MUSCULOSKELETAL: No joint swelling or deformity. EXTREMITIES: No cyanosis, clubbing, or pedal edema. NEUROLOGICAL: 4/5 in the lower extremity SKIN: No rashes. Assessment and plan 1 bilateral lower extremity weakness: Probably secondary to lumbar radiculopathy patient has L4-L5 neuroforaminal stenosis patient will be started on Decadron pending physical therapy and orthopedic evaluation. -Complex ovarian cyst: Consulted COMMISSARY HELPER, recommending outpatient follow-up with COMMISSARY HELPER oncology no further evaluation inpatient. -Tachycardia secondary to pain which improved leukocytosis reactive without any evidence of infection at this time -Ductal carcinoma in situ, breast cancer: Follow-up as an outpatient for mastectomy scheduled for may -Seizure disorder -Chronic low back pain -Hypertension DVT prophylaxis: Lovenox The impression and plan of care has been dictated by Galina Alfaro, Nurse Practitioner as directed. Dr. Linda MD I have performed a history and physical examination and medical decision making of this patient, discussed the same with the dictator, and agree with the dictators assessment and plan as written, documented as a scribe. Based on total visit time, I have performed more than 50% of this visit. Objective - Vital Signs Vital signs: Vital Signs Temp 97.5 F L 05/16/23 07:00 Pulse 116 H 05/16/23 08:00 Resp 19 05/16/23 08:00 BP 121/74 05/16/23 07:00 Pulse Ox 99 05/16/23 07:00 FiO2 Intake & Output 05/15/23 05/16/23 05/16/23 18:59 06:59 18:59 Output Total 5 Balance -5 Output: Urine 5 Other: Voiding Method Bedside Commode Bedside Commode Bedside Commode # Voids 2 # Bowel Movements 1 1 - Labs CBC & Chem 7: 05/15/23 07:08 05/15/23 07:08 Labs: Microbiology - Last 24 Hours (Table) 05/14/23 15:15 Blood Culture - Preliminary Blood Assessment and Plan Time with Patient: Less than 30
[2023-05-16] MEDS: atenoloL 50 MG TAB PO SCH (21:47)
[2023-05-17 04:00] VITALS: RESP 16
[2023-05-17 08:02] VITALS: TEMP 97.4
[2023-05-17 14:16] VITALS: BP 119/77; PULSE 98
[2023-05-17] MEDS ORDERED: atenoloL 50 MG TAB PO SCH (21:00)
--- NOTE | 2023-05-21 08:57 | P.DS ---
Providers Date of admission: 05/14/23 19:12 Attending physician: Wilder Perez Consults: 05/15/23 13:46 Consult Physician Routine Consulting Provider: Carri Mckeon Consult Reason/Comments: back pain, pt request for dr Mckeon Do you want consulting provider notified?: Yes 05/15/23 13:56 Consult Physician Routine Consulting Provider: Jessica Burns Consult Reason/Comments: complex ovarian cyst Do you want consulting provider notified?: Yes Primary care physician: Jimbo Bañuelos [facility] Course: Final Diagnosis -bilateral lower extremity weakness: Probably secondary to lumbar radiculopathy patient has L4-L5 neuroforaminal stenosis -Complex ovarian cyst: needs follow up with [facility] Oncology on DC -Tachycardia secondary to pain which improved leukocytosis reactive without any evidence of infection at this time. resolved. -Ductal carcinoma in situ, breast cancer: Follow-up as an outpatient for mastectomy as scheduled -Seizure disorder -Chronic low back pain -Hypertension Discharge Disposition Patient is stable for discharge home. Patient will continue on a course of oral dexamethasone taper. Patient to follow-up with Dr. Francis in the office for further evaluation of the neuroforaminal stenosis. Her lower extremity paresthesia and weakness has improved. She was evaluated by physical therapy recommending home with home care. Patient to follow-up with Dr. Abbott in the office and will be referred to a [facility] oncologist further evaluation for the complex ovarian cyst. Patient is scheduled for a mastectomy in May for left ductal carcinoma in situ. She should follow-up with her surgeon in the meantime. Recommend to repeat labs in 2 to 3 days and follow-up with her PCP Dr. Bañuelos in the office in 1 to 2 days. Hospital Course This is a 58 year old female with recent diagnosis of left breast cancer scheduled for a mastectomy in may, also history of seizure disorder, hypertension, hysterectomy. Patient came in with complaints of lower extremity weakness and tingling numbness patient does have history of chronic low back pain. Patient's symptoms has been going on for about a week to 10 days progressively getting worse because of which patient came to ER. Patient was recently treated for urinary tract infection. 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 Patient will undergo bilateral mastectomy in month of May. Patient was also found to have a complex left ovarian cyst. Transvaginal ultrasound showing a complex appearing cystic structure within the ovaries bilaterally could potentially represent malignancy. This would be in the differential. Dr. Burns recommends follow-up with gynecology on discharge but will see the patient in the office prior. CA125 antigen completed which was in normal limits. Patient had leukocytosis MRI of the lumbar spine showed moderate disc degeneration with moderate bilateral L4-L5 and moderate to severe bilateral neuroforaminal foraminal stenosis. Patient was started on IV dexamethasone for the neuroforaminal stenosis. She does report improvement in her paresthesias to the lower extremity. Further surgical workup while inpatient and patient will see orthopedics in the office as well as above. White blood cell count has improved down to 12.99, electrolytes are within normal limits. Her lactic acidosis has improved. Urinalysis was normal. No chest pain or shortness of breath lungs are clear S1-S2 auscultated no nausea vomiting or diarrhea. Has equal strength bilaterally in the lower extremities no focal neurological deficits. No incontinence no loss of bowels. Hemodynamically she is stable and will be discharged home with the above-mentioned recommendations. See medication reconciliation for list of current medication. Thank you for allowing us to participate in care of this patient. The impression and plan of care has been dictated by Galina Alfaro, Nurse Practitioner as directed. Dr. Linda MD I have performed a history and physical examination and medical decision making of this patient, discussed the same with the dictator, and agree with the dictators assessment and plan as written, documented as a scribe. Based on total visit time, I have performed more than 50% of this visit. Patient Condition at Discharge: Good Plan - Discharge Summary Discharge Rx Participant: No New Discharge Prescriptions: New dexAMETHasone ORAL [Hexadrol] 4 mg PO DIRECTED 5 Days #6 tab Continue Albuterol Inhaler [Ventolin Hfa Inhaler] 2 puff INHALATION RT-Q6H PRN PRN Reason: Shortness Of Breath Loratadine [Claritin] 10 mg PO DAILY Atenolol/Chlorthalidone [Atenolol/Chlorthalidone 50-25] 1 tab PO HS Potassium Chloride ER [K-Dur 10] 10 meq PO DAILY Montelukast [Singulair] 10 mg PO HS Atorvastatin [Lipitor] 20 mg PO HS Cyclobenzaprine [Flexeril] 10 mg PO HS Discontinued Cephalexin [Keflex] 500 mg PO QID Discharge Medication List Albuterol Inhaler [Ventolin Hfa Inhaler] 2 puff INHALATION RT-Q6H PRN 04/23/23 [History] Atorvastatin [Lipitor] 20 mg PO HS 04/23/23 [History] Montelukast [Singulair] 10 mg PO HS 04/23/23 [History] Atenolol/Chlorthalidone [Atenolol/Chlorthalidone 50-25] 1 tab PO HS 05/14/23 [Hi story] Cyclobenzaprine [Flexeril] 10 mg PO HS 05/14/23 [History] Loratadine [Claritin] 10 mg PO DAILY 05/14/23 [History] Potassium Chloride ER [K-Dur 10] 10 meq PO DAILY 05/14/23 [History] dexAMETHasone ORAL [Hexadrol] 4 mg PO DIRECTED 5 Days #6 tab 05/16/23 [Rx] Follow up Appointment(s)/Referral(s): Carri Mckeon DO [Doctor of Osteopathic Medicine] - 1 Week (Office will call patient) Jessica Burns DO [Doctor of Osteopathic Medicine] - 1 Week (Office will call patient with date and time of appointment) [facility], [NON-STAFF] - 1 Week Jimbo Bañuelos MD [Primary Care Provider] - 1-2 days Ambulatory/Diagnostic Orders: Basic Metabolic Panel [LAB.AMB] Time Frame: 3 Days, Location: None Selected Complete Blood Count w/diff [LAB.AMB] Time Frame: 3 Days, Location: None Selected Patient Instructions/Handouts: Weakness (ED) Activity/Diet/Wound Care/Special Instructions: Recommend to follow up with PCP Dr. Bañuelos in 1 to 2 days, follow up with Dr. Burns in [address] Burns will assist in setting up a follow up appointment with laboratory associate it support specialist. Make an appointment to see Dr. Mckeon in the office to review MRI and for further recommendations Continue oral steroid taper for the next 5 days. Recommend to follow up with your PCP Dr. Bañuelos regarding prescription for outpatient physical therapy. Repeat labs in 2 to 3 days Discharge Disposition: HOME SELF-CARE
== END 2023-05-17 17:02 | disposition home or self-care (01) ==
LOC: EC 13:18 → 6NMEDSUR 19:12
PROVIDERS: ADMIT Hospitalist; ATTEND Hospitalist
DX: R53.1 Weakness (principal); M51.36 Other intervertebral disc degeneration, lumbar region; D05.92 Unspecified type of carcinoma in situ of left breast; M48.061 Spinal stenosis, lumbar region without neurogenic claudication; N39.0 Urinary tract infection, site not specified; I10 Essential (primary) hypertension; F41.9 Anxiety disorder, unspecified; N83.202 Unspecified ovarian cyst, left side; N83.201 Unspecified ovarian cyst, right side; G40.909 Epilepsy, unspecified, not intractable, without status epilepticus; R00.0 Tachycardia, unspecified; D72.829 Elevated white blood cell count, unspecified; Z79.899 Other long term (current) drug therapy; Z88.5 Allergy status to narcotic agent
CPT/HCPCS: 96361 ×2; 96365; 96367; 96372 ×2; 99285; 36415; 97162; 97166; 83880; 80053 ×2; 86304; 83605; 83735 ×2; 84100 ×2; 84484; 85025 ×2; 85610; 85730; 81003; 87040; 93975; 76830; 74176; 72158; G0378 ×4; J8540 ×3; J1644 ×2; J1956; J1885; A9585

== ENCOUNTER → 2023-05-28 | Outpatient (CLI) | payer OTHER ==
[2023-05-28 10:55] VITALS: BP 139/83; PULSE 106; RESP 15; TEMP 98.3
--- NOTE | 2023-05-28 10:55 | P.PN ---
Subjective Progress Note Date: 05/28/23 Principal diagnosis: DCIS 5 CM left breast DCIS left breast Dulce is a 58 year old female seen in consultation for Dr. 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 She had a bilateral mammogram on 03-15-23 which led to a diagnostic left breast ultrasound and mammogram on 03-25-23. She was noted to have microcalcifications of concern in the UOQ and stero biopsy was recommended, and additionally she had : an ultrasound: 1. oval mass subaerolar area left breast biopsy considered 2. oval mass 10:00 biopsy considered The ultrasound was repeated on 04-06-23 and felt to be probably benign. The above was reviewed with Dr. Friend and he recommended again repeating the ultrasound of the subaerolar and 10:00 regions of the breast. A stero biopsy was done of the calcifications on 04-05-23 which showed DCIS. The area spans 5 by 2 cm. The findings were on a routine screening mammogram. She was not complaining of any new lumps masses or nodules of concern in either breast. She is not complaining of any nipple discharge or skin changes. She had not had any recent trauma or infection in the breast. She has not had any surgery on her breast. Her last mammogram prior to this was 2016. Case presented at tumor board on 05-04-23; Patient wishes for bilateral mastectomy without reconstruction. She will be recommended to have endocrine therapy. Genetic testing recommended. Since her last visit patient was treated in the ER for a UTI and bilateral lower extremity weekness. 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 She was seen by Dr. Burns and will be seen by Dr. Francis. She will be seen at [facility] in [place] regarding the cyst on her ovary. CBC: on 05-24-23 Hgb: 16 WBC: 20.46 The patient is not complaining of any fever or chills. She was treated and cleared for a UTI. Caffeine: 3 cups/day nicotine: none BCP: used for about 3 years in remote past chocolate: occasional Family History: mother: pancreatic cancer maternal aunt: breast cancer maternal uncle: lung cancer smoker 3 paternal uncles: cnacer ? type Hormonal History: menarche: 12 , breast fed: no, age at first : 22 menopause: hysterectomy in 2000; one ovary left; done for fibroids Surgical History: hysterectomy/ one ovary removed back surgery laminectomy/discectomy/DJD tonsil Medical History: back pain PTSD OCD panic attacks Hypochondriac Social History: nicotine: none alcohol: none drugs: none - Constitutional Constitutional: Denies chills, Denies fever - EENT Eyes: denies blurred vision, denies pain Ears: deny: decreased hearing, tinnitus Ears, nose, mouth and throat: Denies headache, Denies sore throat - Breasts Breasts: bilateral: as per HPI - Cardiovascular Cardiovascular: Denies chest pain, Denies shortness of breath - Respiratory Respiratory: Denies cough - Gastrointestinal Gastrointestinal: Denies abdominal pain, Denies diarrhea, Denies nausea, Denies vomiting - Genitourinary (Female) Genitourinary: Denies dysuria, Denies hematuria - Menstruation Menstruation: Reports post hysterectomy - Musculoskeletal Musculoskeletal: Reports as per HPI - Integumentary Integumentary: Denies pruritus, Denies rash - Neurological Neurological: Denies numbness, Denies weakness - Psychiatric Psychiatric: Reports as per HPI, Reports anxiety, Reports depression - Endocrine Endocrine: Reports fatigue, Denies weight change - Hematologic/Lymphatic Comment: none - Allergic/Immunologic Allergic/Immunologic: Reports seasonal allergies Medications and Allergies Home Medications Medication Instructions Recorded Confirmed Type ALPRAZolam [Xanax] 0.5 mg PO BID 04/23/23 04/23/23 History Albuterol Inhaler [Ventolin Hfa 1 puff INHALATION DAILY 04/23/23 04/23/23 History Inhaler] Atorvastatin [Lipitor] 40 mg PO DAILY 04/23/23 04/23/23 History Cyclobenzaprine [Flexeril] 5 mg PO DAILY 04/23/23 04/23/23 History Fluticasone Propion/Salmeterol 1 puff INHALATION DAILY 04/23/23 04/23/23 History [Advair Hfa 115-21 Mcg Inhaler] Melatonin 1 mg PO HS 04/23/23 04/23/23 History Montelukast [Singulair] 10 mg PO DAILY 04/23/23 04/23/23 History Multivitamin [Multivitamins Adult 1 tab PO DAILY 04/23/23 04/23/23 History Gummies] atenoloL [Tenormin] 50 mg PO DAILY 04/23/23 04/23/23 History Allergies Allergy/AdvReac Type Severity Reaction Status Date / Time morphine Allergy Nausea & Unverified 04/23/23 12:27 Vomiting Objective - Constitutional General appearance: Present: cooperative - EENT Eyes: Present: EOMI ENT: Present: hearing grossly normal - Neck Neck: Present: normal ROM - Respiratory Respiratory: bilateral: CTA - Cardiovascular Heart sounds: normal: S1, S2 - Gastrointestinal General gastrointestinal: Present: soft - Integumentary Integumentary: Present: normal turgor - Musculoskeletal Musculoskeletal Comment(s): using a walker - Psychiatric Psychiatric: Present: A&O x's 3, appropriate affect, intact judgment & insight - Additional findings Additional findings: Breast Exam: BRA: 38D Inspection: bilateral grade 3 ptosis, well-healed incision from core biopsy Palpation: Right breast: Multi positional exam no dominant masses or nodules of concern, slightly larger than left breast Right axilla: No adenopathy of concern Left breast: Multi positional exam no dominant masses or nodules of concern, well-healed incision from core biopsy Left axilla: No adenopathy of concern Assessment and Plan Assessment: Impression: DCIS left breast upper outer quadrant area 5 x 2 cm Genetic testing secondary to family history, not yet done appointment with Dr. Francis regarding spine appointment [facility] regarding ovarian cyst treated with cephlexan QID for UTI, was told this was cleared Plan: Presentation of case at tumor board; 05-04-23 done Genetic testing bilateral mastectomy, left sentinel node injection, left sentinel node biopsy, possible left axillary node dissection repeat CBC today CC: Dr. Bañuelos
== END ==
LOC: WWCWWP 09:24
PROVIDERS: ATTEND Surgery
DX: D05.12 Intraductal carcinoma in situ of left breast (principal); F42.9 Obsessive-compulsive disorder, unspecified; N39.0 Urinary tract infection, site not specified; N83.201 Unspecified ovarian cyst, right side; N83.202 Unspecified ovarian cyst, left side; F43.10 Post-traumatic stress disorder, unspecified; Z80.3 Family history of malignant neoplasm of breast; Z88.5 Allergy status to narcotic agent

== ENCOUNTER 2023-06-22 07:53 | Inpatient (IN) | payer OTHER ==
[~2023-06-22 07:53] MED LIST: LIDOCAINE 1% (10MG/ML) FOR IV START INTRADERMA PRN
[2023-06-22] MEDS: fentaNYL (PF) 50 MCG/1 ML VIAL IVP ONE (08:46)
[2023-06-22] MEDS: MIDAZOLAM 2 MG/2 ML VIAL IVP ONE ×2 (08:46→09:15)
[2023-06-22] MEDS: HEPARIN SODIUM,PORCINE 5,000 UNIT/ML 1 ML VIAL SQ PRN (08:59)
[2023-06-22] MEDS: ONDANSETRON 4 MG/2 ML VIAL ONE (09:01)
[2023-06-22] MEDS: DEXAMETHASONE SOD PHOSPHATE 4 MG/ML 1 ML VIAL IV ONE (09:01)
[2023-06-22] MEDS: SCOPOLAMINE 1 MG/72 HR PATCH TRANSDERM ONE (09:02)
[2023-06-22] MEDS ORDERED: fentaNYL (PF) 50 MCG/ML 2 ML AMP ONE (09:10)
[2023-06-22] MEDS ORDERED: PROPOFOL 10 MG/ML 20 ML VIAL IV ONE (09:10)
[2023-06-22] MEDS ORDERED: ROPIVACAINE 5 MG/ML 30 ML VIAL ONE (09:10)
[2023-06-22] MEDS ORDERED: LIDOCAINE 1% INJ 10MG/ML (20 ML MDV) ONE (09:10)
[2023-06-22] MEDS ORDERED: SODIUM CHLORIDE 0.9% (PF) 10 ML VIAL ONE (09:10)
[2023-06-22] MEDS ORDERED: SUCCINYLCHOLINE CHLORIDE 200 MG/10 ML VIAL IV ONE (09:10)
[2023-06-22] MEDS ORDERED: HYDROmorphone (PF) 1 MG/ML ONE (09:10)
[2023-06-22] MEDS ORDERED: DEXAMETHASONE SOD PHOSPHATE 4 MG/ML 1 ML VIAL ONE (09:10)
--- NOTE | 2023-06-22 09:11 | P.ANPRN ---
Procedure Note - Anesthesia - Nerve Block Performed Bilateral Erector Spinae Single Time Out Performed: Yes Date of Procedure: 06/22/23 Procedure Start Time: 08:46 Procedure Stop Time: 08:54 Location of Patient: PreOp Indication: Acute Post-Operative Pain, Requested by Surgeon Sedation Type: Sedate with meaningful contact maintained Preparation: Sterile Prep Position: Prone Needle Types: Pajunk Needle Gauge: 21 Ultrasound used to visualize needle placement: Yes Ultrasound used to observe medication spread: Yes Injectate: 0.5% Ropivacaine (see comment for volume) (Ropivacaine 0.5% 15 ml + 15 ml NS + 4 mg Dexamethasone per side) Blood Aspirated: No Pain Paresthesia on Injection Noted: No Image Stored and Saved: Yes Events: Uneventful and Well Tolerated
[2023-06-22] MEDS: LACTATED RINGERS 1,000 ML IV SCH (09:16)
--- NOTE | 2023-06-22 09:27 | P.NAPBC ---
NAPBC Queries - NAPBC Queries Was patient's case review presented at [facility] tumor board? If no, comment.: Yes Was patient's pathology reviewed at [facility]? If no, comment.: Yes Was breast conservation surgery offered? If no, comment.: Yes Was sentinel node biopsy offered? If no, comment.: Yes Was diagnosis confirmed by percutaneous core biopsy? If no, comment.: Yes Is patient mastectomy patient?: Yes Was a preop referral to reconstructive surgeon offered?: Yes Clinical Stage: stage 0 left breast DCIS
[2023-06-22] MEDS: LACTATED RINGERS 1,000 ML IV ONE (10:48)
[2023-06-22] MEDS ORDERED: ONDANSETRON 4 MG/2 ML VIAL IVP PRN (12:55)
[2023-06-22] MEDS ORDERED: NALOXONE 0.4 MG/ML 1 ML VIAL IV PRN (12:55)
--- NOTE | 2023-06-22 12:55 | P.OP ---
Date of Procedure: 06/22/23 Preoperative Diagnosis: Left breast DCIS Postoperative Diagnosis: Same Procedure(s) Performed: Bilateral mastectomy, left breast sentinel node biopsy Anesthesia: BAYLEE Surgeon: Chapis Harley Estimated Blood Loss (ml): 30 IV fluids (ml): 1,000 Pathology: other (Bilateral breast, left axillary sentinel node biopsy) Condition: stable Disposition: floor Indications for Procedure: Left breast DCIS Operative Findings: Fibrofatty breast tissue Description of Procedure: Patient is a 58-year-old female who had a biopsy-proven left breast DCIS. After discussion with the patient she wished bilateral mastectomies. She was given the option of a lumpectomy but declined. Her case was presented at tumor board and there was concurrence that bilateral mastectomy would be reasonable. The patient was brought to the operative suite following injection of radiotracer in the left periareolar region. Following induction of anesthesia the neoprobe was used to identify radioactivity in the axilla. Radioactivity was identified. Both breast were prepped and draped in a sterile fashion. The right breast was approached initially. Markings had been placed in the preoperative area and these were reconfirmed in the operating suite. A superior skin incision was formed. A superior flap was developed. Dissection was performed between the subcutaneous tissue and the breast tissue down to the pe ctoralis muscle. The right breast inferior flap was then developed in a similar fashion. The breast was brought from medial to lateral off the pectoralis muscle being careful to maintain hemostasis using the Bovie and scalpel. The wound was well irrigated. Surgicel in powder form was placed. After the breast was removed a short suture was placed superior and a long suture was placed lateral. The wound was well irrigated. Surgicel in powder form was placed. A #10 YOLANDA drain was placed. This was secured using a nylon suture. The deep tissues were closed using interrupted 3-0 Vicryl suture. A running 3-0 Vicryl subcutaneous suture was placed. A 4-0 Monocryl subcuticular suture was placed. 10 cc of 1% lidocaine was injected into the area of the incision. Surgical glue was placed Markings had been placed in the preoperative area and these were reconfirmed in the operating suite for the left mastectomy. A superior skin incision was formed. A superior flap was developed. Dissection was performed between the subcutaneous tissue and the breast tissue down to the pectoralis muscle. The left breast inferior flap was then developed in a similar fashion. The area of the axilla was approached. Using the neoprobe the area of greatest radioactivity was identified. This tissue was grasped using a Allis clamp. This was carefully dissected free. The 10-second count on the lymph node was 8555, a second radioactive lymph node was identified and removed and the 10- second count was 608. The background count of the axilla was 30. After reassured that hemostasis was attained the breast was removed. The breast was brought from medial to lateral off the pectoralis muscle being careful to maintain hemostasis using the Bovie and harmonic scalpel. After the breast was removed a short suture was placed superior and a long suture was placed lateral. The wound was well irrigated. Surgicel in powder form was placed. A #10 YOLANDA drain was placed. This was secured using a nylon suture. The deep tissues were closed using interrupted 3-0 Vicryl suture. All small vessels were suture- ligated using 3-0 Vicryl suture. The wound was well irrigated. Surgicel in powder form was placed. Interrupted 3-0 Vicryl sutures were placed. A running 3-0 Vicryl subcutaneous suture was placed. A 4-0 Monocryl subcuticular suture was placed. 10 cc of 1% lidocaine was injected into the area of the incision. Surgical glue was placed. Patient tolerated the procedure in stable condition. All instrument and sponge counts were correct at the end of the case.
[2023-06-22] MEDS: fentaNYL (PF) 50 MCG/ML 2 ML AMP IV PRN (14:03)
[2023-06-22] MEDS: HYDROmorphone 1 MG/ML 1 ML SYRINGE IVP PRN (15:12)
[2023-06-22] MEDS: HEPARIN SODIUM,PORCINE 5,000 UNIT/ML 1 ML VIAL SQ SCH (19:07)
--- NOTE | 2023-06-22 19:41 | NM ---
EXAMINATION TYPE: NM sentinel node injection DATE OF EXAM: 06/22/2023 COMPARISON: NONE INDICATION: Abnormal mammogram. Informed consent was obtained. A timeout was performed. The area around the left nipple was cleansed with alcohol. In a single dose, a total of 525 uCi Shayy hnetium 99m Tilmanocept was injected. The patient tolerated the procedure very well. IMPRESSION: 1. Successful injection for sentinel node evaluation.
[2023-06-22] MEDS: droPERidol 5 MG/2 ML VIAL IVP ONE (19:49)
[2023-06-22] MEDS ORDERED: ALBUTEROL HFA INHALER INHALATION PRN (20:06)
[2023-06-22] MEDS ORDERED: CYCLOBENZAPRINE 10 MG TAB PO PRN (20:06)
[2023-06-23] MEDS: DEXTROSE 5%-0.45% NACL 1,000 ML IV SCH (00:01)
[2023-06-23] MEDS: ATORVASTATIN 20 MG TAB PO SCH (00:19)
[2023-06-23] MEDS: MONTELUKAST 10 MG TAB PO SCH (00:20)
[2023-06-23] MEDS: ACETAMINOPHEN TAB 325 MG TAB PO PRN (00:20)
[2023-06-23] MEDS: ALPRAZolam 0.25 MG TAB PO PRN (00:27)
[2023-06-23 07:35] LABS: Basophils % (A) 0 %; Eosinophils % (A) 0 %; HCT 39.3 % (34.0-46.0); HGB 12.8 gm/dL (11.4-16.0); Lymphocytes # (A) 3.1 k/uL (1.0-4.8); Lymphocytes % (A) 14 %; MCHC 32.7 g/dL (31.0-37.0); MCV 94.9 fL (80.0-100.0); Mean Platelet Volume 7.9; Monocytes # (A) 1.2 k/uL (0-1.0); Monocytes % (A) 5 %; Neutrophils % (A) 80 %; Platelet Count 367 k/uL (150-450); RBC 4.14 m/uL (3.80-5.40); RDW 12.3 % (11.5-15.5); WBC 22.7 k/uL (3.8-10.6)
[2023-06-23 07:45] LABS: African American GFR (CKD) >90 (>60 ml/min/1.73 sqM); Anion Gap 8 mmol/L; Blood Urea Nitrogen 17 mg/dL (7-17); Calcium 8.9 mg/dL (8.4-10.2); Carbon Dioxide 24 mmol/L (22-30); Chloride 105 mmol/L (98-107); Glucose 188 mg/dL (74-99); Magnesium 1.6 mg/dL (1.6-2.3); Non-African American GFR(CKD) >90 (>60 ml/min/1.73 sqM); Potassium 3.4 mmol/L (3.5-5.1); Sodium 137 mmol/L (137-145)
[2023-06-23] MEDS: LORATADINE 10 MG TAB PO SCH (08:12)
--- NOTE | 2023-06-23 10:20 | P.PN ---
Subjective Progress Note Date: 06/23/23 Principal diagnosis: Left breast DCIS/postop day #1 bilateral mastectomy with left sentinel node biopsy Patient is postop day #1 bilateral mastectomy with left sentinel node biopsy. Postoperatively she is doing well. She was noted to have an elevated white count to 22.7, hemoglobin 12.8, YOLANDA drainage serous, left: 20 cc, right: 5 cc. The patient is tolerating her diet Objective - Vital Signs Vital signs: Vital Signs Temp 97.6 F 06/23/23 07:22 Pulse 99 06/23/23 07:22 Resp 16 06/23/23 07:22 BP 130/82 06/23/23 08:17 Pulse Ox 97 06/23/23 07:22 FiO2 Intake & Output 06/22/23 06/23/23 06/23/23 18:59 06:59 18:59 Intake Total 1650 240 Output Total 555 580 20 Balance 1095 -580 220 Weight 78.2 kg Intake: IV 1650 Oral 240 Output: Drainage 25 30 20 Left YOLANDA Drain 20 20 Right YOLANDA Drain 5 30 Urine 500 550 Estimated Blood Loss 30 Other: # Voids 1 3 1 - Constitutional General appearance: Present: cooperative - EENT Eyes: Present: EOMI ENT: Present: hearing grossly normal - Neck Neck: Present: normal ROM - Respiratory Respiratory: bilateral: CTA - Cardiovascular Heart sounds: normal: S1, S2 - Integumentary Integumentary Comment(s): incision Clean and dry bilateral, no evidence of infection, no evidence of hematoma - Psychiatric Psychiatric: Present: A&O x's 3, appropriate affect, intact judgment & insight - Labs CBC & Chem 7: 06/23/23 06:56 06/23/23 06:56 Labs: Abnormal Lab Results - Last 24 Hours (Table) 06/23/23 06/23/23 Range/Units 06:56 06:56 WBC 22.7 H (3.8-10.6) k/uL Neutrophils # 18.0 H (1.3-7.7) k/uL Monocytes # 1.2 H (0-1.0) k/uL Potassium 3.4 L (3.5-5.1) mmol/L Glucose 188 H (74-99) mg/dL Assessment and Plan Assessment: Impression: Patient postop day #1 bilateral mastectomy with left sentinel node biopsy Leukocytosis, suspect stress related no evidence of infection at this time Plan: Repeat CBC in a.m. Change IV to heparin lock Continue pain management Await consult Dr. Cortes Probable discharge home tomorrow
[2023-06-23] MEDS: POTASSIUM CHLORIDE ER 10 MEQ TAB.ER.PRT PO SCH (10:30)
[2023-06-23] MEDS: ALPRAZolam 0.5 MG TAB PO PRN (11:56)
--- NOTE | 2023-06-23 12:18 | P.CONS ---
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 * Internal medicine team consulted for postoperative medical management. Review of vitals show blood pressure of 130/82 with a heart rate of 99 saturation 97% on room air * Postprocedure blood work obtained showed WBC of 22.7 hemoglobin 12.8 platelet count of 367. Serum chemistry showed sodium 137 potassium 3.4 glucose 188 magnesium 1.6 * Home medications were reviewed and reconciled and patient was started back on home regimen * Internal medicine team will will continue to follow along during the hospital stay REVIEW OF SYSTEMS: CONSTITUTIONAL: No fever, no malaise, no fatigue. HEENT: No recent visual problems or hearing problems. Denied any sore throat. CARDIOVASCULAR: No chest pain, orthopnea, PND, no palpitations, no syncope. PULMONARY: No shortness of breath, no cough, no hemoptysis. GASTROINTESTINAL: No diarrhea, no nausea, no vomiting, no abdominal pain. NEUROLOGICAL: No headaches, no weakness, no numbness. HEMATOLOGICAL: Denies any bleeding or petechiae. GENITOURINARY: Denies any burning micturition, frequency, or urgency. MUSCULOSKELETAL/RHEUMATOLOGICAL: Denies any joint pain, swelling, or any muscle pain. ENDOCRINE: Denies any polyuria or polydipsia. PHYSICAL EXAMINATION: GENERAL: The patient is alert and oriented x3, not in any acute distress. Well developed, well nourished. HEENT: Pupils are round and equally reacting to light. EOMI. No scleral icterus. CARDIOVASCULAR: S1 and S2 present. No murmurs, rubs, or gallops. PULMONARY: Chest is clear to auscultation, no wheezing or crackles. ABDOMEN: Soft, nontender, nondistended, normoactive bowel sounds. No palpable organomegaly. MUSCULOSKELETAL: Postsurgical wound bandaged, drain in place EXTREMITIES: No cyanosis, clubbing, or pedal edema. NEUROLOGICAL: Gross neurological examination did not reveal any focal deficits. SKIN: No rashes. Assessment and plan * History of ductal carcinoma in situ s/p bilateral mastectomy left sentinel lymph node biopsy POD 1 * Hypertension * Obesity * History of anxiety * Hypokalemia * History of asthma * In regards to postoperative surgical management continue current care by surgery team continue postoperative wound management. * In regards to history of hypertension continue patient on atenolol, chlorthalidone * Regards to hypokalemia potassium replaced * In regards to history of hypertension continue patient on Xanax * In regards to history of asthma continue albuterol as needed continue Singulair Past Medical History Past Medical History: Asthma, Cancer, Hypertension Additional Past Medical History / Comment(s): breast ca, hernitaion of lower lumbar spine, History of Any Multi-Drug Resistant Organisms: None Reported Past Surgical History: Back Surgery, Hysterectomy, Tonsillectomy, Tubal Ligation Additional Past Surgical History / Comment(s): Bladder suspension with abdominal hysterectomy Past Anesthesia/Blood Transfusion Reactions: Previous Problems w/ Anesthesia, P ostoperative Nausea & Vomiting (PONV) Smoking Status: Never smoker - Past Family History Mother Family Medical History: Cancer Additional Family Medical History / Comment(s): Pancreatic cancer Medications and Allergies Home Medications Medication Instructions Recorded Confirmed Type Albuterol Inhaler [Ventolin Hfa 2 puff INHALATION RT-Q6H PRN 04/23/23 06/22/23 History Inhaler] Atorvastatin [Lipitor] 20 mg PO HS 04/23/23 06/17/23 History Montelukast [Singulair] 10 mg PO HS 04/23/23 06/17/23 History Atenolol/Chlorthalidone 1 tab PO HS 05/14/23 06/22/23 History [Atenolol/Chlorthalidone 50-25] Cyclobenzaprine [Flexeril] 10 mg PO HS 05/14/23 06/17/23 History Loratadine [Claritin] 10 mg PO DAILY 05/14/23 06/17/23 History Potassium Chloride ER [K-Dur 10] 10 meq PO DAILY 05/14/23 06/17/23 History ALPRAZolam [Xanax] 0.5 tab PO DAILY PRN 06/21/23 06/22/23 History oxyCODONE HCL [Oxaydo] 5 mg PO Q6H PRN 3 Days #10 tab 06/22/23 Rx Allergies Allergy/AdvReac Type Severity Reaction Status Date / Time morphine Allergy Nausea & Verified 06/22/23 08:10 Vomiting Physical Exam Vitals: Vital Signs Temp Pulse Resp BP Pulse Ox 06/23/23 08:17 130/82 06/23/23 07:22 97.6 F 99 16 97 06/23/23 00:20 98.0 F 107 H 16 130/77 95 06/22/23 20:00 98.6 F 112 H 16 123/77 96 06/22/23 16:50 85 16 119/80 06/22/23 16:20 91 16 122/79 06/22/23 16:00 87 16 136/84 06/22/23 15:50 85 16 133/86 06/22/23 15:33 89 16 135/86 99 06/22/23 15:16 97.5 F L 89 16 143/83 99 06/22/23 14:15 82 14 138/68 99 06/22/23 14:00 84 14 132/70 100 06/22/23 13:45 86 14 134/70 100 06/22/23 13:29 97 F L 81 13 137/75 100 Intake and Output 06/22/23 06/23/23 06/23/23 22:59 06:59 14:59 Output Total 1075 30 20 Balance -1075 -30 -20 Output: Drainage 25 30 20 Left YOLANDA Drain 20 20 Right YOLANDA Drain 5 30 Urine 1050 Other: # Voids 1 3 Results CBC & Chem 7: 06/23/23 06:56 06/23/23 06:56 Labs: Abnormal Lab Results - Last 24 Hours (Table) 06/23/23 06/23/23 Range/Units 06:56 06:56 WBC 22.7 H (3.8-10.6) k/uL Neutrophils # 18.0 H (1.3-7.7) k/uL Monocytes # 1.2 H (0-1.0) k/uL Potassium 3.4 L (3.5-5.1) mmol/L Glucose 188 H (74-99) mg/dL
[2023-06-23] MEDS: SODIUM CHLORIDE 0.9% 500 ML 500 ML IV ONE (15:36)
[2023-06-23] MEDS: atenoloL 50 MG TAB PO SCH (21:10)
[2023-06-23] MEDS: CHLORTHALIDONE 25 MG TAB PO SCH (22:25)
[2023-06-24 08:06] LABS: HCT 38.5 % (34.0-46.0); HGB 12.5 gm/dL (11.4-16.0); MCH 30.9 pg (25.0-35.0); MCHC 32.6 g/dL (31.0-37.0); MCV 94.9 fL (80.0-100.0); Mean Platelet Volume 7.8; Platelet Count 350 k/uL (150-450); RBC 4.06 m/uL (3.80-5.40); RDW 12.6 % (11.5-15.5); WBC 16.2 k/uL (3.8-10.6)
[2023-06-24 08:23] LABS: African American GFR (CKD) >90 (>60 ml/min/1.73 sqM); Anion Gap 9 mmol/L; Blood Urea Nitrogen 17 mg/dL (7-17); Calcium 8.8 mg/dL (8.4-10.2); Carbon Dioxide 24 mmol/L (22-30); Chloride 106 mmol/L (98-107); Glucose 108 mg/dL (74-99); Non-African American GFR(CKD) >90 (>60 ml/min/1.73 sqM); Potassium 3.4 mmol/L (3.5-5.1); Sodium 139 mmol/L (137-145)
--- NOTE | 2023-06-24 08:32 | P.PN ---
Subjective Progress Note Date: 06/24/23 Principal diagnosis: Left breast DCIS/postop day #2 bilateral mastectomy with left sentinel node biopsy Patient is postop day #2 bilateral mastectomy with left sentinel node biopsy. Postoperatively she is doing well. She was initially noted to have an elevated white count to 22 which has decreased today to approximately 16. She has no evidence of infection. The YOLANDA drain on the right side was not draining initially and did begin to drain and put out approximately 120 cc of serous fluid. She does have some swelling on the right side at this time. Her pain is under control. She is tolerating diet without difficulty. She has no evidence of seroma on the left chest wall Objective - Vital Signs Vital signs: Vital Signs Temp 98.3 F 06/23/23 22:24 Pulse 120 H 06/23/23 22:24 Resp 18 06/23/23 22:24 BP 138/79 06/23/23 22:24 Pulse Ox 98 06/23/23 22:24 FiO2 Intake & Output 06/23/23 06/24/23 06/24/23 18:59 06:59 18:59 Intake Total 240 Output Total 115 120 Balance 125 -120 Intake: Oral 240 Output: Drainage 115 120 Left YOLANDA Drain 110 90 Right YOLANDA Drain 5 30 Other: # Voids 3 1 # Bowel Movements 1 - Constitutional General appearance: Present: cooperative - EENT ENT: Present: hearing grossly normal - Neck Neck: Present: normal ROM - Respiratory Respiratory: bilateral: CTA - Cardiovascular Heart sounds: normal: S1, S2 - Integumentary Integumentary Comment(s): Bilateral incisions clean and dry Seroma right chest wall No seroma left chest wall - Psychiatric Psychiatric: Present: A&O x's 3, appropriate affect, intact judgment & insight - Labs CBC & Chem 7: 06/24/23 07:29 06/23/23 06:56 Labs: Abnormal Lab Results - Last 24 Hours (Table) 06/24/23 Range/Units 07:29 WBC 16.2 H (3.8-10.6) k/uL Assessment and Plan Assessment: Impression: Patient postop day #2 bilateral mastectomy with left sentinel node biopsy Leukocytosis, based suspect stress related no evidence of infection at this time Plan: Discharge home Follow-up Dr. Torres in clinic for aspiration of seroma Home health care
[2023-06-24 09:19] VITALS: RESP 17
[2023-06-24 09:26] LABS: C Reactive Protein 3.6 mg/dL (<1.0)
[2023-06-24] MEDS: POTASSIUM CHLORIDE ER 20 MEQ TAB.ER PO STA (09:38)
[2023-06-24] MEDS: MAGNESIUM OXIDE 400 MG TAB PO STA (10:42)
--- NOTE | 2023-06-24 12:06 | P.PN ---
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 * Internal medicine team consulted for postoperative medical management. Review of vitals show blood pressure of 130/82 with a heart rate of 99 saturation 97% on room air * Postprocedure blood work obtained showed WBC of 22.7 hemoglobin 12.8 platelet count of 367. Serum chemistry showed sodium 137 potassium 3.4 glucose 188 magnesium 1.6 * Home medications were reviewed and reconciled and patient was started back on home regimen * Internal medicine team will will continue to follow along during the hospital stay * 06/24/23: Patient seen and evaluated bedside, CBC reviewed WBC 16.2 trending down, potassium 3.4 that will be replaced magnesium 1.6 will be replaced. EKG ordered patient does have paroxysmal tachycardia will be reviewed. Postoperative wound management per primary team. EKG shows sinus rhythm patient asymptomatic will be discharged home PHYSICAL EXAMINATION: GENERAL: The patient is alert and oriented x3, not in any acute distress. Well developed, well nourished. HEENT: Pupils are round and equally reacting to light. EOMI. No scleral icterus. CARDIOVASCULAR: S1 and S2 present. No murmurs, rubs, or gallops. PULMONARY: Chest is clear to auscultation, no wheezing or crackles. ABDOMEN: Soft, nontender, nondistended, normoactive bowel sounds. No palpable organomegaly. MUSCULOSKELETAL: Postsurgical wound bandaged, drain in place EXTREMITIES: No cyanosis, clubbing, or pedal edema. NEUROLOGICAL: Gross neurological examination did not reveal any focal deficits. SKIN: No rashes. Assessment and plan * History of ductal carcinoma in situ s/p bilateral mastectomy left sentinel lymph node biopsy POD 2 * Hypertension * Obesity * History of anxiety * Hypokalemia * History of asthma * In regards to postoperative surgical management continue current care by s jeannette team continue postoperative wound management. * In regards to history of hypertension continue patient on atenolol, chlorthalidone, EKG shows sinus rhythm * Regards to hypokalemia potassium replaced, magnesium replaced * In regards to history of hypertension continue patient on Xanax * In regards to history of asthma continue albuterol as needed continue Singulair Objective - Vital Signs Vital signs: Vital Signs Temp 98.3 F 06/23/23 22:24 Pulse 120 H 06/23/23 22:24 Resp 18 06/23/23 22:24 BP 138/79 06/23/23 22:24 Pulse Ox 98 06/23/23 22:24 FiO2 Intake & Output 06/23/23 06/24/23 06/24/23 18:59 06:59 18:59 Intake Total 240 Output Total 115 120 Balance 125 -120 Intake: Oral 240 Output: Drainage 115 120 Left YOLANDA Drain 110 90 Right YOLANDA Drain 5 30 Other: # Voids 3 1 # Bowel Movements 1 - Labs CBC & Chem 7: 06/24/23 07:29 06/24/23 07:29 Labs: Abnormal Lab Results - Last 24 Hours (Table) 06/24/23 06/24/23 Range/Units 07:29 07:29 WBC 16.2 H (3.8-10.6) k/uL Potassium 3.4 L (3.5-5.1) mmol/L Glucose 108 H (74-99) mg/dL
[2023-06-24] MEDS: MAGNESIUM SULFATE-D5W PMX 1 GM in DEXTROSE/WATER 1 100ML.BAG IVPB ONE (13:50)
[2023-06-25 09:04] VITALS: BP 125/77; PULSE 103; TEMP 99
== END 2023-06-24 13:30 | disposition home health service (06) | DRG 362 ==
LOC: OR 07:53 → 4FBP 13:19
PROVIDERS: ADMIT Surgery; ATTEND Surgery
PROC: 0HTV0ZZ Resection of Bilateral Breast, Open Approach (ICD-10-PCS; principal; 2023-06-22 09:00)
PROC: C71L1ZZ Planar Nuclear Medicine Imaging of Upper Chest Lymphatics using Technetium 99m (Tc-99m) (ICD-10-PCS; principal; 2023-06-22 09:00)
PROC: 07B60ZX Excision of Left Axillary Lymphatic, Open Approach, Diagnostic (ICD-10-PCS; principal; 2023-06-22 09:00)
DX: D05.12 Intraductal carcinoma in situ of left breast (principal); E66.9 Obesity, unspecified; Z68.32 Body mass index [BMI] 32.0-32.9, adult; E87.6 Hypokalemia; F43.10 Post-traumatic stress disorder, unspecified; E78.5 Hyperlipidemia, unspecified; M48.061 Spinal stenosis, lumbar region without neurogenic claudication; D72.828 Other elevated white blood cell count; F41.9 Anxiety disorder, unspecified; M54.16 Radiculopathy, lumbar region; G89.29 Other chronic pain; I10 Essential (primary) hypertension; I47.9 Paroxysmal tachycardia, unspecified; J45.909 Unspecified asthma, uncomplicated; Z79.899 Other long term (current) drug therapy; Z88.5 Allergy status to narcotic agent
CPT/HCPCS: 38792; 64999; 80048; 83735; 84145; 85025; 85027; 86140; 88307; 88309; 88341; 88342; 93005

== ENCOUNTER → 2023-06-24 | Outpatient (CLI) | payer OTHER ==
--- NOTE | 2023-06-24 14:29 | P.PN ---
Progress Note - Text Progress Note Date: 06/24/23 The patient was seen postoperatively in the office. She does have a small seroma at the right mastectomy site. The area of the flap was prepped using alcohol. An 18-gauge needle and a 20 cc syringe was used to aspirate 45 cc of serous fluid. There seem to be good resolution of the seroma. Both drains are working. The patient is doing well at this time. She will follow-up next week. Left mastectomy incision clean and dry with no evidence of seroma. Right mastectomy incision clean and dry after aspiration of seroma no evidence of any infection or seroma. CC: follow up next week
== END | disposition home or self-care (01) ==
LOC: WWCWWP 13:39
PROVIDERS: ATTEND Surgery
DX: Z85.3 Personal history of malignant neoplasm of breast (principal)

== ENCOUNTER → 2023-06-29 | Outpatient (CLI) | payer OTHER ==
[2023-06-29 08:43] VITALS: BP 139/84; PULSE 83; RESP 15; TEMP 97.8
--- NOTE | 2023-06-29 09:26 | P.PN ---
Progress Note - Text Progress Note Date: 06/29/23 The patient on 2623 underwent a bilateral mastectomy with a left sentinel node biopsy. Postoperatively she is doing well but comes for postoperative evaluation. Her incisions are clean and dry. Her YOLANDA drains are putting out serous fluid. There is no seroma or hematoma of concern. On the right lower abdomen she has two blisters which she believes is related to the binder. This is clean and no evidence of infection. Her dressing was changed, she will follow-up later this week. Impression: Patient doing well postoperative Plan: Continue present therapy Follow-up in 2 to 3 days Follow-up sooner any questions or concerns
== END ==
LOC: WWCWWP 08:13
PROVIDERS: ATTEND Surgery
DX: Z12.31 Encounter for screening mammogram for malignant neoplasm of breast (principal)

== ENCOUNTER → 2023-07-01 | Outpatient (CLI) | payer OTHER ==
[2023-07-01 16:20] VITALS: BP 110/72; PULSE 96; RESP 15; TEMP 98.1
== END ==
LOC: WWCWWP 15:44
PROVIDERS: ATTEND Surgery
DX: Z53.9 Procedure and treatment not carried out, unspecified reason (principal)

== ENCOUNTER → 2023-07-07 | Outpatient (CLI) | payer OTHER ==
[2023-07-07 12:23] VITALS: BP 143/77; PULSE 99; RESP 16; TEMP 98.1
== END ==
LOC: WWCWWP 11:51
PROVIDERS: ATTEND Surgery
DX: Z53.9 Procedure and treatment not carried out, unspecified reason (principal)

== ENCOUNTER → 2023-07-16 | Outpatient (CLI) | payer OTHER ==
[2023-07-16 12:13] VITALS: BP 122/81; PULSE 72; RESP 16; TEMP 98.2
--- NOTE | 2023-07-16 12:20 | P.CON ---
Consult Note - . Consult date: 07/16/23 Assessment/Plan:: 07/07/23 The patient on underwent a bilateral mastectomy with a left sentinel node biopsy. Pathology right breast benign, left breast: DCIS; 15mm all margins (-). Two nodes left (-). ER+Pr- ; radiographiacally spanned about a 5 cm area. Postoperatively she is doing well. She has developed bilateral small seromas and would like these to be aspirated today. T Exam: Heart: Regular rate and rhythm Incisions clean and dry bilateral Small seromas bilateral Impression: Patient doing well postoperative Small seromas bilateral Plan: Aspiration/drainage of seromas after informed consent Follow-up in 4 months CC: Dr. Bañuelos
== END ==
LOC: WWCWWP 11:09
PROVIDERS: ATTEND Surgery
DX: D05.12 Intraductal carcinoma in situ of left breast (principal); L76.33 Postprocedural seroma of skin and subcutaneous tissue following a dermatologic procedure; Z90.13 Acquired absence of bilateral breasts and nipples; Z88.5 Allergy status to narcotic agent

== ENCOUNTER → 2023-07-30 | Outpatient (CLI) | payer OTHER ==
[2023-07-30 14:45] VITALS: BP 146/84; PULSE 80; RESP 17; TEMP 98
--- NOTE | 2023-07-30 14:50 | P.CON ---
Consult Note - . Consult date: 07/30/23 Assessment/Plan:: Consult Note - . Consult date: 07/16/23 Assessment/Plan:: 07/07/23 The patient on underwent a bilateral mastectomy with a left sentinel node biopsy. Pathology right breast benign, left breast: DCIS; 15mm all margins (-). Two nodes left (-). ER+Pr- ; radiographiacally spanned about a 5 cm area. Postoperatively she is doing well. She has developed bilateral small seromas and would like these to be aspirated today. T Exam: Heart: Regular rate and rhythm Incisions clean and dry bilateral Small seromas bilateral procedure note 07-16-23: Aspiration seroma Right chest wall: The area was prepped using alcohol and an 18-gauge needle on a 20 cc syringe was used to aspirate 60 cc of straw-colored fluid with resolution of the seroma Left chest wall: The area was prepped using alcohol and an 18-gauge needle on a 20 cc syringe was used to aspirate 35 cc of straw-colored fluid She had complete resolution of both seromas. She is doing well and will follow- up in 4 months or sooner if she has any questions or concerns 07-30-23: note Dr. Manuel reviewed, did not recommend radiation or hormone therapy Examination: Bilateral small seromas Aspiration of seroma Right chest wall the area was prepped using alcohol, a 18-gauge needle on a 10 cc syringe was used to withdraw 24 cc of fluid without resolution of the seroma Left chest wall: The area was prepped with alcohol using an 18-gauge needle on a 10 cc syringe 30 cc of straw-colored fluid was withdrawn with resolution of the seroma The patient tolerated this in stable condition The midportion of the incision on the left is open slightly and this is reinforced with 3-0 nylon suture Plan: Follow-up next week Follow-up sooner any questions or concerns CC: Dr. Ambrose
== END ==
LOC: WWCWWP 13:57
PROVIDERS: ATTEND Surgery
DX: D05.12 Intraductal carcinoma in situ of left breast (principal); L76.33 Postprocedural seroma of skin and subcutaneous tissue following a dermatologic procedure; Z90.13 Acquired absence of bilateral breasts and nipples; Z88.5 Allergy status to narcotic agent

== ENCOUNTER → 2023-08-05 | Outpatient (CLI) | payer OTHER ==
--- NOTE | 2023-08-05 13:58 | P.CON ---
Consult Note - . Consult date: 08/05/23 Assessment/Plan:: The patient on underwent a bilateral mastectomy with a left sentinel node biopsy. Pathology right breast benign, left breast: DCIS; 15mm all margins (-). Two nodes left (-). ER+Pr- ; radiographiacally spanned about a 5 cm area. Postoperatively she is doing well. She has developed bilateral small seromas and would like these to be aspirated today. T Exam: Heart: Regular rate and rhythm Incisions clean and dry bilateral Small seromas bilateral procedure note 07-16-23: Aspiration seroma Right chest wall: The area was prepped using alcohol and an 18-gauge needle on a 20 cc syringe was used to aspirate 60 cc of straw-colored fluid with resolution of the seroma Left chest wall: The area was prepped using alcohol and an 18-gauge needle on a 20 cc syringe was used to aspirate 35 cc of straw-colored fluid She had complete resolution of both seromas. She is doing well and will follow- up in 4 months or sooner if she has any questions or concerns 07-30-23: note Dr. Manuel reviewed, did not recommend radiation or hormone therapy Examination: Bilateral small seromas Aspiration of seroma Right chest wall the area was prepped using alcohol, a 18-gauge needle on a 10 cc syringe was used to withdraw 24 cc of fluid without resolution of the seroma Left chest wall: The area was prepped with alcohol using an 18-gauge needle on a 10 cc syringe 30 cc of straw-colored fluid was withdrawn with resolution of the seroma The patient tolerated this in stable condition The midportion of the incision on the left is open slightly and this is reinforced with 3-0 nylon suture 08-05-23 The patient on underwent a bilateral mastectomy with a left sentinel node biopsy. Pathology right breast benign, left breast: DCIS; 15mm all margins (-). Two nodes left (-). ER+Pr- ; radiographiacally spanned about a 5 cm area. Postoperatively she is doing well. She had bilateral seromas aspirated on 07-30-23. Exam: Heart: Regular rate and rhythm Incisions clean and dry bilateral, no seromas to aspirate Plan: Follow-up 4 months sutures removed Follow-up sooner any questions or concerns CC: Dr. Ambrose Additional CC's: Jimbo Bañuelos
[2023-08-05 14:26] VITALS: BP 148/79; PULSE 78; RESP 18; TEMP 98.3
== END ==
LOC: WWCWWP 13:43
PROVIDERS: ATTEND Surgery
DX: D05.12 Intraductal carcinoma in situ of left breast (principal); L76.33 Postprocedural seroma of skin and subcutaneous tissue following a dermatologic procedure; Z90.13 Acquired absence of bilateral breasts and nipples; Z88.5 Allergy status to narcotic agent

== ENCOUNTER → 2023-09-13 | Outpatient (CLI) | payer OTHER ==
[2023-09-13 13:40] VITALS: BP 158/79; PULSE 68; RESP 16; TEMP 97.9
--- NOTE | 2023-09-13 13:49 | P.CON ---
Consult Note - . Consult date: 09/13/23 Assessment/Plan:: 08/05/23 Assessment/Plan:: The patient on underwent a bilateral mastectomy with a left sentinel node biopsy. Pathology right breast benign, left breast: DCIS; 15mm all margins (-). Two nodes left (-). ER+Pr- ; radiographiacally spanned about a 5 cm area. Postoperatively she is doing well. She has developed bilateral small seromas and would like these to be aspirated today. T Exam: Heart: Regular rate and rhythm Incisions clean and dry bilateral Small seromas bilateral procedure note 07-16-23: Aspiration seroma Right chest wall: The area was prepped using alcohol and an 18-gauge needle on a 20 cc syringe was used to aspirate 60 cc of straw-colored fluid with resolution of the seroma Left chest wall: The area was prepped using alcohol and an 18-gauge needle on a 20 cc syringe was used to aspirate 35 cc of straw-colored fluid She had complete resolution of both seromas. She is doing well and will follow- up in 4 months or sooner if she has any questions or concerns 07-30-23: note Dr. Manuel reviewed, did not recommend radiation or hormone therapy Examination: Bilateral small seromas Aspiration of seroma Right chest wall the area was prepped using alcohol, a 18-gauge needle on a 10 cc syringe was used to withdraw 24 cc of fluid without resolution of the seroma Left chest wall: The area was prepped with alcohol using an 18-gauge needle on a 10 cc syringe 30 cc of straw-colored fluid was withdrawn with resolution of the seroma The patient tolerated this in stable condition The midportion of the incision on the left is open slightly and this is reinforced with 3-0 nylon suture 08-05-23 The patient on underwent a bilateral mastectomy with a left sentinel node biopsy. Pathology right breast benign, left breast: DCIS; 15mm all margins (-). Two nodes left (-). ER+Pr- ; radiographiacally spanned about a 5 cm area. Postoperatively she is doing well. She had bilateral seromas aspirated on 07-30-23. 09-13-23 Patient being checked for seroma. Exam: Heart: Regular rate and rhythm Incisions clean and dry bilateral, small seromas bilateral Plan: Send bilateral seroma aspiration was performed. The left mastectomy site was approached initially. The skin was prepped using alcohol. An 18-gauge needle on a 20 cc syringe was used to aspirate 40 cc of straw-colored fluid. The right ectomy site was approached. The skin was prepped using alcohol. An 18-gauge ne edle on a 12 cc syringe was used to aspirate 7 cc of straw-colored fluid. There were no residual seromas following the aspiration. Follow-up 4 months Follow-up sooner any questions or concerns Follow-up sooner any questions or concerns CC: Dr. Ambrose Additional CC's: Jimbo Bañuelos Additional CC's: Jimbo Bañuelos
== END ==
LOC: WWCWWP 13:19
PROVIDERS: ATTEND Surgery
DX: D05.12 Intraductal carcinoma in situ of left breast (principal); L76.33 Postprocedural seroma of skin and subcutaneous tissue following a dermatologic procedure; Z90.13 Acquired absence of bilateral breasts and nipples; Z88.5 Allergy status to narcotic agent

== ENCOUNTER → 2023-10-21 | Outpatient (CLI) | payer MEDICARE, OTHER ==
[2023-10-21 09:25] VITALS: BP 121/78; PULSE 81; RESP 17; TEMP 98.1
--- NOTE | 2023-10-21 09:41 | P.PN ---
Subjective Progress Note Date: 10/21/23 Principal diagnosis: DCIS left breast DCIS left breast A 58-year-old white female who was initially seen in consultation for Dr. 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 She had a bilateral mammogram in 03-15-2023 which led to a diagnostic left breast ultrasound and mammogram in 03-25-2023. She was noted to have microcalcifications of concern in the upper outer quadrant and stereo biopsy was recommended. She additionally had an ultrasound. The stereo biopsy revealed DCIS in the area of concern spanned 5 x 2 cm. After discussion with the patient she chose to have bilateral mastectomies. Performed on 06-22-2023. Pathology of the right breast was benign, left breast DCIS 15 mm all margins negative. 2 nodes from the left negative. This was ER/MA positive and radiographically however the area had spanned approximately 5 cm. Postoperatively she developed bilateral small seromas most recently aspirated aspirated on 09-13-2023. The right chest wall aspiration was only 7 cc of straw-colored fluid. The left mastectomy site was 40 cc of straw-colored fluid. Oncology note: She was seen by Dr. Manuel who did not recommend any hormone therapy. Caffeine: 3 cups/day nicotine: none BCP: used for about 3 years in remote past chocolate: occasional Family History: mother: pancreatic cancer maternal aunt: breast cancer maternal uncle: lung cancer smoker 3 paternal uncles: cnacer ? type Hormonal History: menarche: 12 , breast fed: no, age at first : 22 menopause: hysterectomy in 2000; one ovary left; done for fibroids Surgical History: hysterectomy/ one ovary removed back surgery laminectomy/discectomy/DJD tonsil Medical History: back pain PTSD OCD panic attacks Hypochondriac Social History: nicotine: none alcohol: none drugs: none - Constitutional Constitutional: Denies chills, Denies fever - EENT Eyes: denies blurred vision, denies pain Ears: deny: decreased hearing, tinnitus Ears, nose, mouth and throat: Denies headache, Denies sore throat - Breasts Breasts: bilateral: as per HPI - Cardiovascular Cardiovascular: Denies chest pain, Denies shortness of breath - Respiratory Respiratory: Denies cough - Gastrointestinal Gastrointestinal: Denies abdominal pain, Denies diarrhea, Denies nausea, Denies vomiting - Genitourinary (Female) Genitourinary: Denies dysuria, Denies hematuria - Menstruation Menstruation: Reports post hysterectomy - Musculoskeletal Musculoskeletal: Reports as per HPI - Integumentary Integumentary: Denies pruritus, Denies rash - Neurological Neurological: Denies numbness, Denies weakness - Psychiatric Psychiatric: Reports as per HPI, Reports anxiety, Reports depression - Endocrine Endocrine: Reports fatigue, Denies weight change - Hematologic/Lymphatic Comment: none - Allergic/Immunologic Allergic/Immunologic: Reports seasonal allergies Medications and Allergies Home Medications Medication Instructions Recorded Confirmed Type ALPRAZolam [Xanax] 0.5 mg PO BID 04/23/23 04/23/23 History Albuterol Inhaler [Ventolin Hfa 1 puff INHALATION DAILY 04/23/23 04/23/23 History Inhaler] Atorvastatin [Lipitor] 40 mg PO DAILY 04/23/23 04/23/23 History Cyclobenzaprine [Flexeril] 5 mg PO DAILY 04/23/23 04/23/23 History Fluticasone Propion/Salmeterol 1 puff INHALATION DAILY 04/23/23 04/23/23 History [Advair Hfa 115-21 Mcg Inhaler] Melatonin 1 mg PO HS 04/23/23 04/23/23 History Montelukast [Singulair] 10 mg PO DAILY 04/23/23 04/23/23 History Multivitamin [Multivitamins Adult 1 tab PO DAILY 04/23/23 04/23/23 History Gummies] atenoloL [Tenormin] 50 mg PO DAILY 04/23/23 04/23/23 History Allergies Allergy/AdvReac Type Severity Reaction Status Date / Time morphine Allergy Nausea & Unverified 04/23/23 12:27 Vomiting Objective - Vital Signs Vital signs: Vital Signs Temp 98.1 F 10/21/23 09:23 Pulse 81 10/21/23 09:23 Resp 17 10/21/23 09:23 BP 121/78 10/21/23 09:23 Pulse Ox 97 10/21/23 09:23 FiO2 Intake & Output 10/20/23 10/21/23 10/21/23 18:59 06:59 18:59 Weight 76.204 kg - Constitutional General appearance: Present: cooperative - EENT Eyes: Present: EOMI ENT: Present: hearing grossly normal - Neck Neck: Present: normal ROM - Respiratory Respiratory: bilateral: CTA - Cardiovascular Heart sounds: normal: S1, S2 - Integumentary Integumentary: Present: normal turgor - Musculoskeletal Musculoskeletal: Present: gait normal - Psychiatric Psychiatric: Present: A&O x's 3, appropriate affect, intact judgment & insight - Additional findings Additional findings: Examination: Inspection: Incisions clean and dry well-healed slight fullness left chest wall palpable consistent with seroma Palpation: Right chest wall: Examination no evidence of tumor/the pathology was benign breast tissue Right axilla: No adenopathy of concern Left chest wall: Seroma present, no evidence of any tumor Left axilla: No adenopathy of concern Assessment and Plan Assessment: Impression: Patient doing well status post bilateral mastectomy for left breast DCIS No evidence of any recurrent disease Seroma left chest wall Plan: Aspiration seroma Following informed consent the area of concern was prepped using alcohol. An 18-gauge needle and a 60 cc syringe was used to aspirate 60 cc of straw-colored fluid. The seroma resolved totally. The patient tolerated the procedure in stable condition. The patient will follow-up in 1 month for repeat evaluation The patient will follow-up sooner any questions or concerns CC: Dr. Ambrose
== END ==
LOC: WWCWWP 09:14
PROVIDERS: ATTEND Surgery
DX: L76.82 Other postprocedural complications of skin and subcutaneous tissue (principal); Z90.13 Acquired absence of bilateral breasts and nipples; Z85.3 Personal history of malignant neoplasm of breast; Z80.3 Family history of malignant neoplasm of breast; Z48.817 Encounter for surgical aftercare following surgery on the skin and subcutaneous tissue; Z88.5 Allergy status to narcotic agent

== ENCOUNTER → 2023-12-03 | Outpatient (CLI) | payer MEDICARE, OTHER ==
[2023-12-03 09:09] VITALS: BP 148/80; PULSE 84; RESP 18; TEMP 98.2
--- NOTE | 2023-12-03 09:47 | P.PN ---
Subjective Progress Note Date: 12/03/23 Principal diagnosis: left breast DCIS 5 cm span Dulce is a 58 year old female seen in consultation for Dr. 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 She had a bilateral mammogram on 03-15-23 which led to a diagnostic left breast ultrasound and mamm ogram on 03-25-23. She was noted to have microcalcifications of concern in the UOQ and stero biopsy was recommended, and additionally she had : an ultrasound: A stero biopsy was done of the calcifications on 04-05-23 which showed DCIS. The area spans 5 by 2 cm. The findings were on a routine screening mammogram. She was not complaining of any new lumps masses or nodules of concern in either breast. She was not complaining of any nipple discharge or skin changes. She had not had any recent trauma or infection in the breast. She has not had any surgery on her breast. Her last mammogram prior to this was 2016. Case presented at tumor board on 05-04-23; Patient wishes for bilateral mastectomy without reconstruction. She will be recommended to have endocrine therapy. Genetic testing recommended. patient was noted to have bilateral lower extremity weekness. 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 She was followed by DR. Francis and told not needed any surgery, her prior surgery "holding up well" The ovaian cyst is being followed by Dr. Mccartney with [facility] in [place] sent by Dr. Burns bilateral mastectomies on 06-22-23 pathology of right benign; pathology of the left 15 mm DCIS; spanned 5 cm on mammogram; ER+Pr+; she has had seromas aspirated bilateral seen by DR. Manuel did not recommend any additional hormones or radiation therapy last seroma aspirated on 10-21-23 60 cc straw colored fluid aspirated from left chest wall genetic testing VUS (variant of unknown significance) CBC: on 05-24-23 Hgb: 16 WBC: 20.46 Caffeine: 3 cups/day nicotine: none BCP: used for about 3 years in remote past chocolate: occasional Family History: mother: pancreatic cancer maternal aunt: breast cancer maternal uncle: lung cancer smoker 3 paternal uncles: cancer ? type Hormonal History: menarche: 12 , breast fed: no, age at first : 22 menopause: hysterectomy in 2000; one ovary left; done for fibroids Surgical History: hysterectomy/ one ovary removed back surgery laminectomy/discectomy/DJD tonsil Medical History: back pain PTSD OCD panic attacks Hypochondriac Social History: nicotine: none alcohol: none drugs: none - Constitutional Constitutional: Denies chills, Denies fever - EENT Eyes: denies blurred vision, denies pain Ears: deny: decreased hearing, tinnitus Ears, nose, mouth and throat: Denies headache, Denies sore throat - Breasts Breasts: bilateral: as per HPI - Cardiovascular Cardiovascular: Denies chest pain, Denies shortness of breath - Respiratory Respiratory: Denies cough - Gastrointestinal Gastrointestinal: Denies abdominal pain, Denies diarrhea, Denies nausea, Denies vomiting - Genitourinary (Female) Genitourinary: Denies dysuria, Denies hematuria - Menstruation Menstruation: Reports post hysterectomy - Musculoskeletal Musculoskeletal: Reports as per HPI - Integumentary Integumentary: Denies pruritus, Denies rash - Neurological Neurological: Denies numbness, Denies weakness - Psychiatric Psychiatric: Reports as per HPI, Reports anxiety, Reports depression - Endocrine Endocrine: Reports fatigue, Denies weight change - Hematologic/Lymphatic Comment: none - Allergic/Immunologic Allergic/Immunologic: Reports seasonal allergies Medications and Allergies Home Medications Medication Instructions Recorded Confirmed Type ALPRAZolam [Xanax] 0.5 mg PO BID 04/23/23 04/23/23 History Albuterol Inhaler [Ventolin Hfa 1 puff INHALATION DAILY 04/23/23 04/23/23 History Inhaler] Atorvastatin [Lipitor] 40 mg PO DAILY 04/23/23 04/23/23 History Cyclobenzaprine [Flexeril] 5 mg PO DAILY 04/23/23 04/23/23 History Fluticasone Propion/Salmeterol 1 puff INHALATION DAILY 04/23/23 04/23/23 History [Advair Hfa 115-21 Mcg Inhaler] Melatonin 1 mg PO HS 04/23/23 04/23/23 History Montelukast [Singulair] 10 mg PO DAILY 04/23/23 04/23/23 History Multivitamin [Multivitamins Adult 1 tab PO DAILY 04/23/23 04/23/23 History Gummies] atenoloL [Tenormin] 50 mg PO DAILY 04/23/23 04/23/23 History Allergies Allergy/AdvReac Type Severity Reaction Status Date / Time morphine Allergy Nausea & Unverified 04/23/23 12:27 Vomiting Objective - Vital Signs Vital signs: Vital Signs Temp 98.2 F 12/03/23 09:04 Pulse 84 12/03/23 09:04 Resp 18 12/03/23 09:04 BP 148/80 12/03/23 09:04 Pulse Ox 99 12/03/23 09:04 FiO2 Intake & Output 12/02/23 12/03/23 12/03/23 18:59 06:59 18:59 Weight 76.657 kg - Constitutional General appearance: Present: cooperative - EENT Eyes: Present: EOMI ENT: Present: hearing grossly normal - Neck Neck: Present: normal ROM - Respiratory Respiratory: bilateral: CTA - Cardiovascular Rhythm: regular - Integumentary Integumentary: Present: normal turgor - Musculoskeletal Musculoskeletal: Present: gait normal - Psychiatric Psychiatric: Present: A&O x's 3, appropriate affect, intact judgment & insight - Additional findings Additional findings: Chest wall examination: Inspection: Bilateral incisions clean and dry, slight fullness of the left chest wall Palpation: Right chest wall no evidence of any masses lumps or nodules Right axilla: No adenopathy of concern Left chest wall: Small seroma otherwise no lumps masses or nodules of concern Left axilla: No adenopathy of concern Assessment and Plan Assessment: Impression: DCIS left breast upper outer quadrant area 5 x 2 cm Genetic testing secondary to family history, not yet done appointment with Dr. Francis regarding spine; no surgery needed appointment [facility] regarding ovarian cyst followed Seroma left chest wall Plan: aspiration seroma left chest wall Follow-up here in 6 months Follow-up sooner any questions or concerns The area of concern in the left chest wall was prepped using alcohol. An 18- gauge needle and a 20 cc syringe was used to aspirate 45 cc of straw-colored fluid. Patient tolerated this without difficulty. CC: Dr. Bañuelos
== END ==
LOC: WWCWWP 08:45
PROVIDERS: ATTEND Surgery
DX: R92.8 Other abnormal and inconclusive findings on diagnostic imaging of breast (principal); D05.12 Intraductal carcinoma in situ of left breast; N83.209 Unspecified ovarian cyst, unspecified side; L76.82 Other postprocedural complications of skin and subcutaneous tissue; Z80.3 Family history of malignant neoplasm of breast; Z88.5 Allergy status to narcotic agent

== ENCOUNTER → 2024-02-08 | Outpatient (CLI) | payer MEDICARE, OTHER ==
--- NOTE | 2024-02-08 08:20 | P.PN ---
Subjective Progress Note Date: 02/08/24 left breast DCIS 5 cm span Dulce is a 58 year old female seen in consultation for Dr. 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 She had a bilateral mammogram on 03-15-23 which led to a diagnostic left breast ultrasound and mammogram on 03-25-23. She was noted to have microcalcifications of concern in the UOQ and stero biopsy was recommended, and additionally she had : an ultrasound: A stero biopsy was done of the calcifications on 04-05-23 which showed DCIS. The area spans 5 by 2 cm. The findings were on a routine screening mammogram. She was not complaining of any new lumps masses or nodules of concern in either breast. She was not complaining of any nipple discharge or skin changes. She had not had any recent trauma or infection in the breast. She has not had any surgery on her breast. Her last mammogram prior to this was 2016. Case presented at tumor board on 05-04-23; Patient wishes for bilateral mastectomy without reconstruction. She will be recommended to have endocrine therapy. Genetic testing recommended. patient was noted to have bilateral lower extremity weekness. 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 She was followed by DR. Francis and told not needed any surgery, her prior surgery "holding up well" The ovaian cyst is being followed by Dr. Mccartney with [facility] in [place] sent by Dr. Burns bilateral mastectomies on 06-22-23 pathology of right benign; pathology of the left 15 mm DCIS; spanned 5 cm on mammogram; ER+Pr+; she has had seromas aspirated bilateral seen by DR. Manuel did not recommend any additional hormones or radiation therapy last seroma aspirated on 10-21-23 60 cc straw colored fluid aspirated from left chest wall genetic testing VUS (variant of unknown significance) on her last visit had a seroma aspirated on the left chest wall which was straw-colored fluid She comes in today complaining of some swelling in the left chest wall and some tenderness at that site with some forearm tenderness as well Examination: Lungs: Clear Heart: Regular rate and rhythm Incisions: Clean and dry bilaterally question of a very small seroma in the left chest wall no evidence of any recurrent disease Plan attempted aspiration The area of concern was prepped using alcohol an 18-gauge needle on a 20 cc syringe was inserted into the area and 15 cc of straw-colored fluid was removed with complete resolution of seroma Plan: Appointment physical therapy for the discomfort in the left forearm rule out any lymphedema Follow-up here in May 2024 follow-up sooner any questions or concerns
[2024-02-08 08:39] VITALS: BP 126/80; PULSE 78; RESP 17; TEMP 98.3
== END ==
LOC: WWCWWP 08:00
PROVIDERS: ATTEND Surgery
DX: D05.12 Intraductal carcinoma in situ of left breast (principal); L76.33 Postprocedural seroma of skin and subcutaneous tissue following a dermatologic procedure; N83.209 Unspecified ovarian cyst, unspecified side; Z90.13 Acquired absence of bilateral breasts and nipples; Z88.5 Allergy status to narcotic agent